=== PATIENT | female | born 1955 | race Caucasian/White ===

== ENCOUNTER → 2018-08-02 09:48 | Outpatient (CLI) | payer OTHER, MEDICAID, SELFPAY ==
--- NOTE | 2018-08-02 | DI.MG.S_ITS ---
BILATERAL DIGITAL SCREENING MAMMOGRAM 3D/2D WITH CAD: 08/02/2018 CLINICAL: Routine screening. Comparison is made to exams dated: 08/03/2017 mammogram, 02/14/2016 mammogram, and 03/08/2013 mammogram - [facility]. There are scattered fibroglandular elements in both breasts. Current study was also evaluated with a Computer Aided Detection (CAD) system. No significant masses, calcifications, or other findings are seen in either breast. There has been no significant interval change. IMPRESSION: NEGATIVE There is no mammographic evidence of malignancy. A 1 year screening mammogram is recommended. This exam was interpreted at Station ID: [id number]. NOTE: For mammograms, a report in lay terms will be sent to the patient. Approximately 15% of breast malignancies will not be visualized mammographically. In the management of a palpable breast mass, a negative mammogram must not discourage biopsy of a clinically suspicious lesion. Electronically Signed By: Vishnu Neely M.D. at/nay:08/02/2018 13:34:57 letter sent: Normal Exam ACR BI-RADS Category 1: Negative [id number]
== END ==
PROVIDERS: Family Provider Family Medicine; PCP Student in an Organized Health Care Education/Training Program; Visit Provider Student in an Organized Health Care Education/Training Program
DX: Z12.31 Encounter for screening mammogram for malignant neoplasm of breast (principal)
CPT/HCPCS: 77063; 77067

== ENCOUNTER → 2018-08-20 11:22 | Outpatient (CLI) | payer OTHER, MEDICAID, SELFPAY ==
[2018-08-20 12:15] LABS: Add Manual Diff / Slide Review NO; Basophils Absolute Auto 100 /uL (0-100); Basophils Percent Auto 0.8 % (0-2); Eosinophils Absolute Auto 100 /uL (0-450); Eosinophils Percent Auto 1.1 % (2-4); Hematocrit 46.5 % (36-46); Hemoglobin 15.9 g/dL (12.0-16.0); Lymphocytes Absolute Auto 2500 /uL (1100-4500); Lymphocytes Percent Auto 38.4 % (25-40); Mean Corpuscular HGB Conc 34.1 % (30-36); Mean Corpuscular Hemoglobin 30.6 PG (26-34); Mean Corpuscular Volume 89.9 fL (80-100); Monocytes Absolute Auto 500 /uL (0-900); Monocytes Percent Auto 7.4 % (3-14); Neutrophils Absolute Auto 3500 /uL (1500-7000); Neutrophils Percent Auto 52.3 % (50-75); Platelet Count 259 X10^3/uL (150-400); Red Blood Cell Count 5.18 X10^6/uL (4.0-5.2); White Blood Cell Count 6.6 X10^3/uL (4.5-11.0)
[2018-08-20 12:42] LABS: Blood Urea Nitrogen 15 mg/dL (7-17); Calcium 9.9 mg/dL (8.4-10.2); Carbon Dioxide 26 mmol/L (22-32); Chloride 104 mmol/L (98-107); Cholesterol 280 mg/dL (140-199); Estimated Glomerular Filt Rate > 60.0 mL/min (>60); Glucose 118 mg/dL (80-110); HDL Cholesterol 47 mg/dL (40-60); HEMOLYSIS 24 (0-50); LDL Cholesterol Calculated 175 mg/dL (<100); Sodium 140 mmol/L (137-145); Triglycerides 291 mg/dL (35-150)
[2018-08-20 12:51] LABS: Potassium 5.6 mmol/L (3.4-5.1)
[2018-08-20 16:49] LABS: Vitamin D 25 Hydroxy (D3) 26.7 ng/mL (30.0-100.0)
== END ==
PROVIDERS: Family Provider Family Medicine; PCP Student in an Organized Health Care Education/Training Program; Visit Provider Student in an Organized Health Care Education/Training Program
DX: R21 Rash and other nonspecific skin eruption (principal); F41.9 Anxiety disorder, unspecified; Z79.899 Other long term (current) drug therapy; Z13.220 Encounter for screening for lipoid disorders; E55.9 Vitamin D deficiency, unspecified
CPT/HCPCS: 36415; 80048; 80061; 82306; 85025

== ENCOUNTER 2019-04-19 10:30 | Outpatient (RCR) | payer OTHER, MEDICAID, SELFPAY ==
--- NOTE | 2019-02-01 10:53 | PT.OIE ---
Current Diagnoses Other specified disorders of muscle (01/27/19) Pelvic and perineal pain (01/27/19) Past Surgical History (Last Reviewed 01/18/19 @ 13:06 by Ivis Ren MD) History of cataract removal with insertion of prosthetic lens History of hip replacement (09/05/15) Status post arthroscopy Status post arthroscopy Status post hysterectomy Provider Visit Care Team Role Provider Type Mat Boyce MD Primary Care Provider Physician Specialty: Internal Medicine Address: [address] [place] [address], [id number] Email: Chanelle Chaparro MD Attending Provider Physician Specialty: TRANSIT MIX OPERATOR Address: [address] [place] [address], [id number] Email: [email or web address] Physical Therapy Initial Evaluation PT-OP-A Visit Information Start: 02/01/19 09:56 Freq: Status: Active Protocol: Document 01/27/19 09:57 [facility] (Rec: 02/01/19 10:53 [facility] [id number]) Out-Patient Physical Therapy Visit Information Visit Information Visit Type Initial Evaluation Visit Note 63 year old female who reports pelvic pain in the right side pubic bone region and internally in the pelvic floor on the right. Pt reports her symptoms began following her hysterectomy and TVT sling procedure in 2001 Visit Start Time 09:00 Visit Stop Time 09:45 Total Visit Minutes 45 Visit Number 1 Evaluation Information Evaluation Date 01/27/19 PT-OP-B Current Condition Start: 02/01/19 09:56 Freq: Status: Active Protocol: Document 01/27/19 09:57 [facility] (Rec: 02/01/19 10:53 [facility] [id number]) Current Condition History of Current Condition Onset Date 2001 Current Complaints pelvic pain, difficulty voiding, dyspareunia History of Current Condition Mera reports her symptoms began in 2001 following her hysterectomy and urethral sling surgery. She reports feeling as if the right side near the pubic bone is impinged She reports being unable to have intercourse at this time as it feels like a knife is in my right side. She c/o pain at the pubic bone and the referred pain to the inner thigh. Sleep is difficulty as she has pain at night. She also reports having a strong sense of urgency during the day to void . With toileting she reports she has to lean forward and move her body to the exact right position in order to start her urine stream. She does report urinary leakage and leakage varies depending on activity but it is often with changing positions. Other past medical history includes a right hip replacement in September of 2015 this was a anterior approach and was redone in 2017 due to complications. She also had her left knee replaced in 2016 . She underwent spinal surgery for L3-4 stenosis in June. She is currently taking hydrocodone for pain and alprazolam for sleep Treatment Goals Patient/Caregiver Goals Goal include reducing pelvic pain and tightness for improved function and to be able to engage in intercourse with her Current Functional Impairments (Reported) Functional Limitations- ADL's limited in sitting for long durations, sleep is disturbed due to pain Functional Limitations- Other unable to engage in intercourse with her due to pain PT-OP-C Subjective Start: 02/01/19 09:56 Freq: Status: Active Protocol: Document 01/27/19 09:57 [facility] (Rec: 02/01/19 10:53 [facility] [id number]) Patient Questionnaires Pelvic Pain and Urgency/Frequency Patient Symptom Scale Pelvic Pain Score 26 OP-PT Pain Assessment Pain Assessment Grid Paper Pain Assessment Grid Completed Yes Location right pubic region, inner thigh, internal pelvic floor Pain Location Details pain rated 6/10 with referral into the inner thigh on the right Intensity 6 Scale Used Numeric (1 - 10) Description Acute Sharp Shooting Spasm Tightness Frequency Daily Pain Duration pain is daily and can intensify with activities such as intercourse Radiating Location right medial thigh Pain Aggravating Factors Sitting Home Pain Medication Use Pain Medications Used Yes Home Pain Medication Frequency hydrocodone used as needed for pain PT-OP-F Manual Assessment Start: 02/01/19 09:56 Freq: Status: Active Protocol: Document 01/27/19 09:57 [facility] (Rec: 02/01/19 10:53 [facility] [id number]) Manual Assessments Soft Tissue Assessment Soft Tissue Mobility Assessment with assessment over the fascia there is restrictions over the mons pubic, right adductors, left obturator internus and coccygeus, right side of urethra Tightness of the right greater than left iliopsoas is observed with + dale test Joint Mobility Assessment Joint Mobility Assessment Due to right hip replacement there are limitations in right hip mobility of abduction and hip extension limited lumbar ROM into flexion in the lower lumbar spine Other Manual Assessments Other Manual Assessments + dale test right PT-OP-I Pelvic Floor Start: 02/01/19 09:56 Freq: Status: Active Protocol: Document 01/27/19 09:57 [facility] (Rec: 02/01/19 10:53 [facility] [id number]) Pelvic Floor Assessment Urine Pelvic Floor Surgery Yes Urinary Symptoms Urge Sensation Other Urinary Symptoms difficulty initiating the urinary stream Leakage Size Small Other Leakage Causes triggers can vary but change of position from sit to stand can be a trigger Leaks Per Day varies Voiding Frequency 6-8 times per day Nocturia 3+ Pelvic Clock Pelvic Clock 12-3 Atrophy Pelvic Clock 3-6 Tightness Pelvic Clock 6-9 Atrophy Pelvic Clock 9-12 Guarding Tightness Pelvic Clock Other atrophy noted in the pelvic floor muscles, possible scar tissue restrictions on the right side of the urethra, guarding left obturator internus and coccygeus Contraction Ability Voluntary Contraction Weak Voluntary Relaxation Weak Manual Muscle Testing Left 2 Manual Muscle Testing Right 2 Manual Muscle Testing Anterior 2 Manual Muscle Testing Posterior 2 Muscle Endurance (Seconds) 5 Comments Pelvic Floor Comments able to facilitate the pelvic floor in all parts of the levator ani but weak in all parts as well, difficulty sustaining a pelvic floor contraction PT-OP-J Posture/Palpation/Skin Start: 02/01/19 09:56 Freq: Status: Active Protocol: Document 01/27/19 09:57 [facility] (Rec: 02/01/19 10:53 [facility] [id number]) Palpation Assessment Location Three Palpation Location left obturator internus/ coccygeus Palpation Findings Soft Tissue Tightness Two Palpation Location right adductors Palpation Findings Soft Tissue Tightness Muscle Guarding Tenderness One Palpation Location right pubic bone Palpation Findings Soft Tissue Tightness Tenderness Palpation Details right mons pubis region tightness, scar tissue tightness noted right side of the urethra internally PT-OP-Q Treatments Start: 02/01/19 09:56 Freq: Status: Active Protocol: Document 01/27/19 09:57 [facility] (Rec: 02/01/19 10:53 [facility] [id number]) Manual Therapy Treatment Soft Tissue Mobilization 3 Body Location right side of urethera Mobilization Type Sustained Pressure Trigger Point Release Intensity/Depth Superficial Body Position Hooklying Comments good tolerance, no increase in pain 2 Body Location right adductors and attachment to the pubic bone Mobilization Type Myofascial Release Intensity/Depth Moderate Body Position Hooklying Comments good tolerance for treatment 1 Body Location right mons pubis Mobilization Type Myofascial Release Rolling Intensity/Depth Superficial Body Position Hooklying Comments good tolerance for treatment PT-OP-T Assessment and Plan Start: 02/01/19 09:56 Freq: Status: Active Protocol: Document 01/27/19 09:57 [facility] (Rec: 02/01/19 10:53 [facility] [id number]) Physical Therapy Assessment Rehab Potential Rehabilitation Potential Good Evaluation Complexity Number of Personal Factors/Comorbidities 0 Number of Body Systems Impaired 1-2 Clinical Presentation at Evaluation Stable Impairments Impairments Activity Tolerance Pain ROM Soft Tissue Mobility Strength Tone Goals Four Impairment myofascial restrictions right mons pubis and right side of urethra Fpc Goal (LTG) with manual therapy techniques improve myofasical mobility to decrease pain and Mera reports greater ease with voiding to not have to bend forward from the waist to void . LTG Duration 8 weeks Three Impairment Pelvic floor muscle weakness 2 /5 MMT Fpc Goal (LTG) Improve both endurance of the pelvic floor to 10 second hold time and strength of the pelvic floor by at least one muscle grade for improved support of the pelvis LTG Duration 8 weeks Two Impairment pelvic floor tightness left obturator internus, coccygeus, R adductors Short Term Goal (STG) Mera is educated in a HEP for pelvic floor stretching and right hip stretching STG Duration 4 weeks Fpc Goal (LTG) Decrease muscle guarding of the left oburatur internus and improve mobility of the right adductors to decrease pain both with sitting and with intercourse LTG Duration 8 weeks One Impairment R sided pelvic pain rated 6/10 Short Term Goal (STG) With PT treatments Mera's pain levels will slowly decrease to 3-4 or better/10 STG Duration 4 weeks [employer] Goal (LTG) Mera is able to resume intercourse with her without increased pain LTG Duration 8 weeks + Assessment Summary Assessment Mera presents to physcial therapy today with symptoms of chronic pelvic pain on the right side. She reports her symptoms began in 2001 following a hysterectomy and TVT sling placement. She reports c/o tightness on the right side of the pubic bone region both externally and internally. The pain at this point is rated 6/10 and she is unable to engage in intercourse with her as she describes feeling as if there is a knife going in to her right upper vaginal wall. She reports feeling as if pain begins at the pubic bone and is then referred into her right inner thigh. She feels a strong sense of urgency to void at times and this urgency will wake her up at night to void. She reports she has to bend forward from her waist and move her body in a certain position to initate the urinary stream. She is taking hydrocodone as needed for pain and alprazolam for sleep. She has a history of right hip replacement anterior approach in 2015 with revision due to complications 2016, left knee relacement 2016, and lumbar surgery for L3-4 stenosis last June. With examination today I wasn' t able to fully recreate the pain she describes. I did find myofascial restrictions across the mons pubis region right side, right adductors, left obturator internus and coccygeus, and some scar tissue tightness right side of urethra. She is limited in full hip extension and abduction on the right hip most likely due inpart to her hip replacement. She is tight in the iliopsoas and adductors on the right and her paraspinals are also tight in the lumbar spine. Pelvic floor is weak with 2/5 MMT. There is limited endurance of < 5 second hold time. No pelvic organ prolapse is felt today. Mera responded well to MFR today over the mons pubis, right adductor, left obturator internus, and scar tissue release on the right side of urethra, no increase in pain was reported. She was given a stretch for her pelvic floor to address the tightness issues. Treatment will include manual treatments for improved tissue mobility, stretches for home to address tightness in the hip and tissues, pelvic floor relaxed awareness and then eventually strengthening as she is able to. She is a good candidate for PT Physical Therapy Plan Frequency and Duration Frequency of Treatment 1x/Week Duration of Treatment 8 Plan of Care Start Date 01/27/19 Plan of Care End Date 03/24/19 Therapeutic Interventions Therapeutic Interventions Home Exercise Program Manual Therapy Patient/Caregiver Education Self-Care/Home Management Soft Tissue Mobilization Therapeutic Exercises Modalities Biofeedback Electric Stimulation Next Visit Focus/Plan Next Note Type Treatment Note Next Visit Plan Reassess myofascial restrictions next visit and progress as tolerated with MFR , stretching, relaxed awareness of the pelvic floor.
--- NOTE | 2019-02-01 10:54 | PT.OPPOC ---
Current Diagnoses Other specified disorders of muscle (01/27/19) Pelvic and perineal pain (01/27/19) Provider Visit Care Team Role Provider Type Mat Boyce MD Primary Care Provider Physician Specialty: Internal Medicine Address: [address] [place] [address], [id number] Email: Chanelle Chaparro MD Attending Provider Physician Specialty: TRACTOR OPERATOR LASER LEVELING Address: [address] [place] [address], [id number] Email: [email or web address] Plan Of Care PT-OP-T Assessment and Plan Start: 02/01/19 09:56 Freq: Status: Active Protocol: Document 01/27/19 09:57 [facility] (Rec: 02/01/19 10:53 [facility] [id number]) Physical Therapy Assessment Rehab Potential Rehabilitation Potential Good Evaluation Complexity Number of Personal Factors/Comorbidities 0 Number of Body Systems Impaired 1-2 Clinical Presentation at Evaluation Stable Impairments Impairments Activity Tolerance Pain ROM Soft Tissue Mobility Strength Tone Goals Four Impairment myofascial restrictions right mons pubis and right side of urethra [employer] Goal (LTG) with manual therapy techniques improve myofasical mobility to decrease pain and Mera reports greater ease with voiding to not have to bend forward from the waist to void . LTG Duration 8 weeks Three Impairment Pelvic floor muscle weakness 2 /5 MMT Senior Care Goal (LTG) Improve both endurance of the pelvic floor to 10 second hold time and strength of the pelvic floor by at least one muscle grade for improved support of the pelvis LTG Duration 8 weeks Two Impairment pelvic floor tightness left obturator internus, coccygeus, R adductors Short Term Goal (STG) Mera is educated in a HEP for pelvic floor stretching and right hip stretching STG Duration [address] Goal (LTG) Decrease muscle guarding of the left oburatur internus and improve mobility of the right adductors to decrease pain both with sitting and with intercourse LTG Duration 8 weeks One Impairment R sided pelvic pain rated 6/10 Short Term Goal (STG) With PT treatments Mera's pain levels will slowly decrease to 3-4 or better/10 STG Duration [address] Goal (LTG) Mera is able to resume intercourse with her without increased pain LTG Duration 8 weeks + Assessment Summary Assessment Mera presents to physcial therapy today with symptoms of chronic pelvic pain on the right side. She reports her symptoms began in 2001 following a hysterectomy and TVT sling placement. She reports c/o tightness on the right side of the pubic bone region both externally and internally. The pain at this point is rated 6/10 and she is unable to engage in intercourse with her as she describes feeling as if there is a knife going in to her right upper vaginal wall. She reports feeling as if pain begins at the pubic bone and is then referred into her right inner thigh. She feels a strong sense of urgency to void at times and this urgency will wake her up at night to void. She reports she has to bend forward from her waist and move her body in a certain position to initiate the urinary stream. She is taking hydrocodone as needed for pain and alprazolam for sleep. She has a history of right hip replacement anterior approach in 2015 with revision due to complications 2016, left knee replacement 2016, and lumbar surgery for L3-4 stenosis last June. With examination today I wasn't able to fully recreate the pain she describes. I did find myofascial restrictions across the mons pubis region right side, right adductors, left obturator internus and coccygeus, and some scar tissue tightness right side of urethra. She is limited in full hip extension and abduction on the right hip most likely due inpart to her hip replacement. She is tight in the iliopsoas and adductors on the right and her paraspinals are also tight in the lumbar spine. Pelvic floor is weak with 2/5 MMT. There is limited endurance of < 5 second hold time. No pelvic organ prolapse is felt today. Mera responded well to MFR today over the mons pubis, right adductor, left obturator internus, and scar tissue release on the right side of urethra, no increase in pain was reported. She was given a stretch for her pelvic floor to address the tightness issues. Treatment will include manual treatments for improved tissue mobility, stretches for home to address tightness in the hip and tissues, pelvic floor relaxed awareness and then eventually strengthening as she is able to. She is a good candidate for PT Physical Therapy Plan Frequency and Duration Frequency of Treatment 1x/Week Duration of Treatment 8 Plan of Care Start Date 01/27/19 Plan of Care End Date 03/24/19 Therapeutic Interventions Therapeutic Interventions Home Exercise Program Manual Therapy Patient/Caregiver Education Self-Care/Home Management Soft Tissue Mobilization Therapeutic Exercises Modalities Biofeedback Electric Stimulation Next Visit Focus/Plan Next Note Type Treatment Note Next Visit Plan Reassess myofascial restrictions next visit and progress as tolerated with MFR , stretching, relaxed awareness of the pelvic floor. Plan of Care Dates Plan of Care Start Date 01/27/19 Plan of Care End Date 03/24/19 Please Sign and Return: I have reviewed this Plan of Care and certify that the skilled therapy services above are required to meet the patient?s needs. Physician Signature Date Printed Name and Credentials Clinical Instructor Signature Printed Name and Credentials
--- NOTE | 2019-02-22 14:25 | PT.OTN ---
Current Diagnoses Other specified disorders of muscle (02/22/19) Pelvic and perineal pain (02/22/19) Physical Therapy Treatment Note PT-OP-A Visit Information Start: 02/01/19 09:56 Freq: Status: Active Protocol: Document 02/22/19 14:20 [facility] (Rec: 02/22/19 14:24 [facility] [email or web address]) Out-Patient Physical Therapy Visit Information Visit Information Visit Type Treatment Note Visit Start Time 09:00 Visit Stop Time 09:45 Total Visit Minutes 45 Visit Number 2 PT-OP-B Current Condition Start: 02/01/19 09:56 Freq: Status: Active Protocol: Document 01/27/19 09:57 [facility] (Rec: 02/01/19 10:53 [facility] [id number]) Current Condition History of Current Condition Onset Date 2001 Current Complaints pelvic pain, difficulty voiding, dyspareunia History of Current Condition Mera reports her symptoms began in 2001 following her hysterectomy and urethral sling surgery. She reports feeling as if the right side near the pubic bone is impinged She reports being unable to have intercourse at this time as it feels like a knife is in my right side. She c/o pain at the pubic bone and the referred pain to the inner thigh. Sleep is difficulty as she has pain at night. She also reports having a strong sense of urgency during the day to void . With toileting she reports she has to lean forward and move her body to the exact right position in order to start her urine stream. She does report urinary leakage and leakage varies depending on activity but it is often with changing positions. Other past medical history includes a right hip replacement in September of 2015 this was a anterior approach and was redone in 2017 due to complications. She also had her left knee replaced in 2016 . She underwent spinal surgery for L3-4 stenosis in June. She is currently taking hydrocodone for pain and alprazolam for sleep Treatment Goals Patient/Caregiver Goals Goal include reducing pelvic pain and tightness for improved function and to be able to engage in intercourse with her Current Functional Impairments (Reported) Functional Limitations- ADL's limited in sitting for long durations, sleep is disturbed due to pain Functional Limitations- Other unable to engage in intercourse with her due to pain PT-OP-C Subjective Start: 02/01/19 09:56 Freq: Status: Active Protocol: Document 02/22/19 14:20 [facility] (Rec: 02/22/19 14:24 [facility] [email or web address]) OP-PT Subjective Patient Comments Patient Comments Mera reports she tolerated last visit very well . She states when she gets flared up she can feel pain into her right foot. 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 PT-OP-F Manual Assessment Start: 02/01/19 09:56 Freq: Status: Active Protocol: Document 01/27/19 09:57 [facility] (Rec: 02/01/19 10:53 [facility] [id number]) Manual Assessments Soft Tissue Assessment Soft Tissue Mobility Assessment with assessment over the fascia there is restrictions over the mons pubic, right adductors, left obturator internus and coccygeus, right side of urethra Tightness of the right greater than left iliopsoas is observed with + dale test Joint Mobility Assessment Joint Mobility Assessment Due to right hip replacement there are limitations in right hip mobility of abduction and hip extension limited lumbar ROM into flexion in the lower lumbar spine Other Manual Assessments Other Manual Assessments + dale test right PT-OP-I Pelvic Floor Start: 02/01/19 09:56 Freq: Status: Active Protocol: Document 01/27/19 09:57 [facility] (Rec: 02/01/19 10:53 [facility] [id number]) Pelvic Floor Assessment Urine Pelvic Floor Surgery Yes Urinary Symptoms Urge Sensation Other Urinary Symptoms difficutly initiating the urinary stream Leakage Size Small Other Leakage Causes triggers can vary but change of position from sit to stand can be a trigger Leaks Per Day varies Voiding Frequency 6-8 times per day Nocturia 3+ Pelvic Clock Pelvic Clock 12-3 Atrophy Pelvic Clock 3-6 Tightness Pelvic Clock 6-9 Atrophy Pelvic Clock 9-12 Guarding Tightness Pelvic Clock Other atrophy noted in the pelvic floor muscles, possible scar tissue restrictions on the right side of the urethra, guarding left obturator internus and coccygeus Contraction Ability Voluntary Contraction Weak Voluntary Relaxation Weak Manual Muscle Testing Left 2 Manual Muscle Testing Right 2 Manual Muscle Testing Anterior 2 Manual Muscle Testing Posterior 2 Muscle Endurance (Seconds) 5 Comments Pelvic Floor Comments able to facilitate the pelvic floor in all parts of the levator ani but weak in all parts as well, difficulty sustaining a pelvic floor contraction PT-OP-J Posture/Palpation/Skin Start: 02/01/19 09:56 Freq: Status: Active Protocol: Document 01/27/19 09:57 [facility] (Rec: 02/01/19 10:53 [facility] [id number]) Palpation Assessment Location Three Palpation Location left obturator internus/ coccygeus Palpation Findings Soft Tissue Tightness Two Palpation Location right adductors Palpation Findings Soft Tissue Tightness Muscle Guarding Tenderness One Palpation Location right pubic bone Palpation Findings Soft Tissue Tightness Tenderness Palpation Details right mons pubis region tightness, scar tissue tightness noted right side of the urethra internally PT-OP-Q Treatments Start: 02/01/19 09:56 Freq: Status: Active Protocol: Document 02/22/19 14:20 [facility] (Rec: 02/22/19 14:24 [facility] [id number]) Manual Therapy Treatment Soft Tissue Mobilization 4 Body Location left illiococcygeus release Comments internally with manual stretch 3 Body Location right side of urethera Mobilization Type Sustained Pressure Trigger Point Release Intensity/Depth Superficial Body Position Hooklying Comments good tolerance, no increase in pain 2 Body Location right adductors and attachment to the pubic bone Mobilization Type Myofascial Release Intensity/Depth Moderate Body Position Hooklying Comments good tolerance for treatment 1 Body Location right mons pubis Mobilization Type Myofascial Release Rolling Intensity/Depth Superficial Body Position Hooklying Comments good tolerance for treatment PT-OP-T Assessment and Plan Start: 02/01/19 09:56 Freq: Status: Active Protocol: Document 02/22/19 14:20 [facility] (Rec: 02/22/19 14:24 [facility] [email or web address]) Physical Therapy Assessment Assessment Summary Assessment Good tolerance for treatment today. I did begin to release the left lateral wall of the pelvic floor as well and have Mera home booty sit recommendations to stretch the lateral bingham. I also gave her cobra pose to begin stretching the tissue over the bladder. Physical Therapy Plan Frequency and Duration Frequency of Treatment 1x/Week Duration of Treatment 8 Plan of Care Start Date 01/27/19 Plan of Care End Date 03/24/19 Therapeutic Interventions Therapeutic Interventions Home Exercise Program Manual Therapy Patient/Caregiver Education Self-Care/Home Management Soft Tissue Mobilization Therapeutic Exercises Modalities Biofeedback Electric Stimulation Next Visit Focus/Plan Next Note Type Treatment Note Next Visit Plan begin with pelvic floor stretches and then reassess tightness of the tissue, review bootie sit, work on scar over the right hip
--- NOTE | 2019-03-08 12:20 | PT.OTN ---
Current Diagnoses Other specified disorders of muscle (03/08/19) Pelvic and perineal pain (03/08/19) Physical Therapy Treatment Note PT-OP-A Visit Information Start: 02/01/19 09:56 Freq: Status: Active Protocol: Document 03/01/19 15:03 [facility] (Rec: 03/08/19 09:06 [facility] [email or web address]) Out-Patient Physical Therapy Visit Information Visit Information Visit Type Treatment Note Visit Start Time 09:00 Visit Stop Time 09:45 Total Visit Minutes 45 Visit Number 3 PT-OP-B Current Condition Start: 02/01/19 09:56 Freq: Status: Active Protocol: Document 01/27/19 09:57 [facility] (Rec: 02/01/19 10:53 [facility] [id number]) Current Condition History of Current Condition Onset Date 2001 Current Complaints pelvic pain, difficulty voiding, dyspareunia History of Current Condition Mera reports her symptoms began in 2001 following her hysterectomy and urethral sling surgery. She reports feeling as if the right side near the pubic bone is impinged She reports being unable to have intercourse at this time as it feels like a knife is in my right side. She c/o pain at the pubic bone and the referred pain to the inner thigh. Sleep is difficulty as she has pain at night. She also reports having a strong sense of urgency during the day to void . With toileting she reports she has to lean forward and move her body to the exact right position in order to start her urine stream. She does report urinary leakage and leakage varies depending on activity but it is often with changing positions. Other past medical history includes a right hip replacement in September of 2015 this was a anterior approach and was redone in 2017 due to complications. She also had her left knee replaced in 2016 . She underwent spinal surgery for L3-4 stenosis in June. She is currently taking hydrocodone for pain and alprazolam for sleep Treatment Goals Patient/Caregiver Goals Goal include reducing pelvic pain and tightness for improved function and to be able to engage in intercourse with her Current Functional Impairments (Reported) Functional Limitations- ADL's limited in sitting for long durations, sleep is disturbed due to pain Functional Limitations- Other unable to engage in intercourse with her due to pain PT-OP-C Subjective Start: 02/01/19 09:56 Freq: Status: Active Protocol: Document 03/01/19 15:03 [facility] (Rec: 03/08/19 09:06 [facility] [id number]) OP-PT Subjective Patient Comments Patient Comments Was sore following last visit but could tell treatment is helping. Requests to work some on her right hip today due to scar tissue PT-OP-F Manual Assessment Start: 02/01/19 09:56 Freq: Status: Active Protocol: Document 01/27/19 09:57 [facility] (Rec: 02/01/19 10:53 [facility] [id number]) Manual Assessments Soft Tissue Assessment Soft Tissue Mobility Assessment with assessment over the fascia there is restrictions over the mons pubic, right adductors, left obturator internus and coccygeus, right side of urethra Tightness of the right greater than left iliopsoas is observed with + dale test Joint Mobility Assessment Joint Mobility Assessment Due to right hip replacement there are limitations in right hip mobility of abduction and hip extension limited lumbar ROM into flexion in the lower lumbar spine Other Manual Assessments Other Manual Assessments + dale test right PT-OP-I Pelvic Floor Start: 02/01/19 09:56 Freq: Status: Active Protocol: Document 01/27/19 09:57 [facility] (Rec: 02/01/19 10:53 [facility] [id number]) Pelvic Floor Assessment Urine Pelvic Floor Surgery Yes Urinary Symptoms Urge Sensation Other Urinary Symptoms difficutly initiating the urinary stream Leakage Size Small Other Leakage Causes triggers can vary but change of position from sit to stand can be a trigger Leaks Per Day varies Voiding Frequency 6-8 times per day Nocturia 3+ Pelvic Clock Pelvic Clock 12-3 Atrophy Pelvic Clock 3-6 Tightness Pelvic Clock 6-9 Atrophy Pelvic Clock 9-12 Guarding,Tightness Pelvic Clock Other atrophy noted in the pelvic floor muscles, possible scar tissue restrictions on the right side of the urethra, guarding left obturator internus and coccygeus Contraction Ability Voluntary Contraction Weak Voluntary Relaxation Weak Manual Muscle Testing Left 2 Manual Muscle Testing Right 2 Manual Muscle Testing Anterior 2 Manual Muscle Testing Posterior 2 Muscle Endurance (Seconds) 5 Comments Pelvic Floor Comments able to facilitate the pelvic floor in all parts of the levator ani but weak in all parts as well, difficulty sustaining a pelvic floor contraction PT-OP-J Posture/Palpation/Skin Start: 02/01/19 09:56 Freq: Status: Active Protocol: Document 01/27/19 09:57 [facility] (Rec: 02/01/19 10:53 [facility] [id number]) Palpation Assessment Location Three Palpation Location left obturator internus/ coccygeus Palpation Findings Soft Tissue Tightness Two Palpation Location right adductors Palpation Findings Soft Tissue Tightness,Muscle Guarding,Tenderness One Palpation Location right pubic bone Palpation Findings Soft Tissue Tightness, Tenderness Palpation Details right mons pubis region tightness, scar tissue tightness noted right side of the urethra internally PT-OP-Q Treatments Start: 02/01/19 09:56 Freq: Status: Active Protocol: Document 03/01/19 15:03 [facility] (Rec: 03/08/19 09:06 [facility] [id number]) Therapeutic Exercises Supine Exercises 3 Supine Exercise Name cobra stretch 2 Supine Exercise Name single knee to chest 1 Supine Exercise Name adductor stretch Manual Therapy Treatment Soft Tissue Mobilization 5 Body Location fascial release over the hip scar on the right 4 Body Location left illiococcygeus release Comments internally with manual stretch 3 Body Location right side of urethera Mobilization Type Sustained Pressure,Trigger Point Release Intensity/Depth Superficial Body Position Hooklying Comments good tolerance, no increase in pain 2 Body Location right adductors and attachment to the pubic bone Mobilization Type Myofascial Release Intensity/Depth Moderate Body Position Hooklying Comments good tolerance for treatment 1 Body Location right mons pubis Mobilization Type Myofascial Release,Rolling Intensity/Depth Superficial Body Position Hooklying Comments good tolerance for treatment PT-OP-T Assessment and Plan Start: 02/01/19 09:56 Freq: Status: Active Protocol: Document 03/01/19 10:18 [facility] (Rec: 03/08/19 12:20 [facility] [id number]) Physical Therapy Assessment Assessment Summary Assessment Good tolerance for MFR and Mera felt the work over her right hip helped to loosen things up for her. She does get quite a bit of sensation changes in her right foot with MFR work Physical Therapy Plan Frequency and Duration Frequency of Treatment 1x/Week Duration of Treatment 8 Plan of Care Start Date 01/27/19 Plan of Care End Date 03/24/19 Next Visit Focus/Plan Next Note Type Treatment Note Next Visit Plan begin with pelvic floor stretches and then reassess tightness of the tissue, review bootie sit, work on scar over the right hip
--- NOTE | 2019-03-08 13:09 | PT.OTN ---
Current Diagnoses Other specified disorders of muscle (03/08/19) Pelvic and perineal pain (03/08/19) Physical Therapy Treatment Note PT-OP-A Visit Information Start: 02/01/19 09:56 Freq: Status: Active Protocol: Document 03/08/19 13:02 [facility] (Rec: 03/08/19 13:09 [facility] [id number]) Out-Patient Physical Therapy Visit Information Visit Information Visit Type Treatment Note Visit Start Time 09:10 Visit Stop Time 09:45 Total Visit Minutes 35 Visit Number 4 Number of STRATEGY INTERN Visits 0 PT-OP-B Current Condition Start: 02/01/19 09:56 Freq: Status: Active Protocol: Document 01/27/19 09:57 [facility] (Rec: 02/01/19 10:53 [facility] [id number]) Current Condition History of Current Condition Onset Date 2001 Current Complaints pelvic pain, difficulty voiding, dyspareunia History of Current Condition Mera reports her symptoms began in 2001 following her hysterectomy and urethral sling surgery. She reports feeling as if the right side near the pubic bone is impinged She reports being unable to have intercourse at this time as it feels like a knife is in my right side. She c/o pain at the pubic bone and the referred pain to the inner thigh. Sleep is difficulty as she has pain at night. She also reports having a strong sense of urgency during the day to void . With toileting she reports she has to lean forward and move her body to the exact right position in order to start her urine stream. She does report urinary leakage and leakage varies depending on activity but it is often with changing positions. Other past medical history includes a right hip replacement in September of 2015 this was a anterior approach and was redone in 2017 due to complications. She also had her left knee replaced in 2016 . She underwent spinal surgery for L3-4 stenosis in June. She is currently taking hydrocodone for pain and alprazolam for sleep Treatment Goals Patient/Caregiver Goals Goal include reducing pelvic pain and tightness for improved function and to be able to engage in intercourse with her Current Functional Impairments (Reported) Functional Limitations- ADL's limited in sitting for long durations, sleep is disturbed due to pain Functional Limitations- Other unable to engage in intercourse with her due to pain PT-OP-C Subjective Start: 02/01/19 09:56 Freq: Status: Active Protocol: Document 03/08/19 13:02 [facility] (Rec: 03/08/19 13:09 [facility] [id number]) OP-PT Subjective Patient Comments Patient Comments pt 10 minutes late as she had road construction in front of her house and couldn't get out . She is feeling like the MFR is helping. Thursday was a bad day with pain in the pubic area she notes that if she lays on her right side wshe will often wake up with pain PT-OP-F Manual Assessment Start: 02/01/19 09:56 Freq: Status: Active Protocol: Document 01/27/19 09:57 [facility] (Rec: 02/01/19 10:53 [facility] [id number]) Manual Assessments Soft Tissue Assessment Soft Tissue Mobility Assessment with assessment over the fascia there is restrictions over the mons pubic, right adductors, left obturator internus and coccygeus, right side of urethra Tightness of the right greater than left iliopsoas is observed with + dale test Joint Mobility Assessment Joint Mobility Assessment Due to right hip replacement there are limitations in right hip mobility of abduction and hip extension limited lumbar ROM into flexion in the lower lumbar spine Other Manual Assessments Other Manual Assessments + dale test right PT-OP-I Pelvic Floor Start: 02/01/19 09:56 Freq: Status: Active Protocol: Document 01/27/19 09:57 [facility] (Rec: 02/01/19 10:53 [facility] [id number]) Pelvic Floor Assessment Urine Pelvic Floor Surgery Yes Urinary Symptoms Urge Sensation Other Urinary Symptoms difficutly initiating the urinary stream Leakage Size Small Other Leakage Causes triggers can vary but change of position from sit to stand can be a trigger Leaks Per Day varies Voiding Frequency 6-8 times per day Nocturia 3+ Pelvic Clock Pelvic Clock 12-3 Atrophy Pelvic Clock 3-6 Tightness Pelvic Clock 6-9 Atrophy Pelvic Clock 9-12 Guarding,Tightness Pelvic Clock Other atrophy noted in the pelvic floor muscles, possible scar tissue restrictions on the right side of the urethra, guarding left obturator internus and coccygeus Contraction Ability Voluntary Contraction Weak Voluntary Relaxation Weak Manual Muscle Testing Left 2 Manual Muscle Testing Right 2 Manual Muscle Testing Anterior 2 Manual Muscle Testing Posterior 2 Muscle Endurance (Seconds) 5 Comments Pelvic Floor Comments able to facilitate the pelvic floor in all parts of the levator ani but weak in all parts as well, difficulty sustaining a pelvic floor contraction PT-OP-J Posture/Palpation/Skin Start: 02/01/19 09:56 Freq: Status: Active Protocol: Document 01/27/19 09:57 [facility] (Rec: 02/01/19 10:53 [facility] [id number]) Palpation Assessment Location Three Palpation Location left obturator internus/ coccygeus Palpation Findings Soft Tissue Tightness Two Palpation Location right adductors Palpation Findings Soft Tissue Tightness,Muscle Guarding,Tenderness One Palpation Location right pubic bone Palpation Findings Soft Tissue Tightness, Tenderness Palpation Details right mons pubis region tightness, scar tissue tightness noted right side of the urethra internally PT-OP-Q Treatments Start: 02/01/19 09:56 Freq: Status: Active Protocol: Document 03/01/19 15:03 [facility] (Rec: 03/08/19 09:06 [facility] [email or web address]) Therapeutic Exercises Supine Exercises 3 Supine Exercise Name cobra stretch 2 Supine Exercise Name single knee to chest 1 Supine Exercise Name adductor stretch Manual Therapy Treatment Soft Tissue Mobilization 5 Body Location fascial release over the hip scar on the right 4 Body Location left illiococcygeus release Comments internally with manual stretch 3 Body Location right side of urethera Mobilization Type Sustained Pressure,Trigger Point Release Intensity/Depth Superficial Body Position Hooklying Comments good tolerance, no increase in pain 2 Body Location right adductors and attachment to the pubic bone Mobilization Type Myofascial Release Intensity/Depth Moderate Body Position Hooklying Comments good tolerance for treatment 1 Body Location right mons pubis Mobilization Type Myofascial Release,Rolling Intensity/Depth Superficial Body Position Hooklying Comments good tolerance for treatment PT-OP-T Assessment and Plan Start: 02/01/19 09:56 Freq: Status: Active Protocol: Document 03/08/19 13:02 [facility] (Rec: 03/08/19 13:09 [facility] [id number]) Physical Therapy Assessment Assessment Summary Assessment Good tolerance for MFR and I was able to do more skin rolling today on the tissue. I wasd also able to go deeper with the scar tissue release Physical Therapy Plan Frequency and Duration Frequency of Treatment 1x/Week Duration of Treatment 8 Plan of Care Start Date 01/27/19 Plan of Care End Date 03/24/19 Therapeutic Interventions Therapeutic Interventions Home Exercise Program,Manual Therapy,Patient/Caregiver Education,Self-Care/Home Management,Soft Tissue Mobilization,Therapeutic Exercises Modalities Biofeedback,Electric Stimulation Next Visit Focus/Plan Next Note Type Treatment Note Next Visit Plan review pelvic floor stretches next visit, review bootie sit and continue to work on mobilizing the right side fascia of the pelvis and hip
--- NOTE | 2019-03-15 17:35 | PT.OTN ---
Current Diagnoses Other specified disorders of muscle (03/14/19) Pelvic and perineal pain (03/14/19) Physical Therapy Treatment Note PT-OP-A Visit Information Start: 02/01/19 09:56 Freq: Status: Active Protocol: Document 03/14/19 11:30 [facility] (Rec: 03/15/19 17:35 [facility] [email or web address]) Out-Patient Physical Therapy Visit Information Visit Information Visit Type Treatment Note Visit Start Time 11:30 Visit Stop Time 12:15 Total Visit Minutes 45 Visit Number 5 Number of ENERGY CONSERVATION DIRECTOR Visits 0 PT-OP-B Current Condition Start: 02/01/19 09:56 Freq: Status: Active Protocol: Document 01/27/19 09:57 [facility] (Rec: 02/01/19 10:53 [facility] [id number]) Current Condition History of Current Condition Onset Date 2001 Current Complaints pelvic pain, difficulty voiding, dyspareunia History of Current Condition Mera reports her symptoms began in 2001 following her hysterectomy and urethral sling surgery. She reports feeling as if the right side near the pubic bone is impinged She reports being unable to have intercourse at this time as it feels like a knife is in my right side. She c/o pain at the pubic bone and the referred pain to the inner thigh. Sleep is difficulty as she has pain at night. She also reports having a strong sense of urgency during the day to void . With toileting she reports she has to lean forward and move her body to the exact right position in order to start her urine stream. She does report urinary leakage and leakage varies depending on activity but it is often with changing positions. Other past medical history includes a right hip replacement in September of 2015 this was a anterior approach and was redone in 2017 due to complications. She also had her left knee replaced in 2016 . She underwent spinal surgery for L3-4 stenosis in June. She is currently taking hydrocodone for pain and alprazolam for sleep Treatment Goals Patient/Caregiver Goals Goal include reducing pelvic pain and tightness for improved function and to be able to engage in intercourse with her Current Functional Impairments (Reported) Functional Limitations- ADL's limited in sitting for long durations, sleep is disturbed due to pain Functional Limitations- Other unable to engage in intercourse with her due to pain PT-OP-C Subjective Start: 02/01/19 09:56 Freq: Status: Active Protocol: Document 03/14/19 11:30 [facility] (Rec: 03/15/19 17:35 [facility] [email or web address]) OP-PT Subjective Patient Comments Patient Comments pt reports no change with her ability to void but she does feel the fascia around her hip is loosening PT-OP-F Manual Assessment Start: 02/01/19 09:56 Freq: Status: Active Protocol: Document 01/27/19 09:57 [facility] (Rec: 02/01/19 10:53 [facility] [id number]) Manual Assessments Soft Tissue Assessment Soft Tissue Mobility Assessment with assessment over the fascia there is restrictions over the mons pubic, right adductors, left obturator internus and coccygeus, right side of urethra Tightness of the right greater than left iliopsoas is observed with + dale test Joint Mobility Assessment Joint Mobility Assessment Due to right hip replacement there are limitations in right hip mobility of abduction and hip extension limited lumbar ROM into flexion in the lower lumbar spine Other Manual Assessments Other Manual Assessments + dale test right PT-OP-I Pelvic Floor Start: 02/01/19 09:56 Freq: Status: Active Protocol: Document 01/27/19 09:57 [facility] (Rec: 02/01/19 10:53 [facility] [id number]) Pelvic Floor Assessment Urine Pelvic Floor Surgery Yes Urinary Symptoms Urge Sensation Other Urinary Symptoms difficutly initiating the urinary stream Leakage Size Small Other Leakage Causes triggers can vary but change of position from sit to stand can be a trigger Leaks Per Day varies Voiding Frequency 6-8 times per day Nocturia 3+ Pelvic Clock Pelvic Clock 12-3 Atrophy Pelvic Clock 3-6 Tightness Pelvic Clock 6-9 Atrophy Pelvic Clock 9-12 Guarding,Tightness Pelvic Clock Other atrophy noted in the pelvic floor muscles, possible scar tissue restrictions on the right side of the urethra, guarding left obturator internus and coccygeus Contraction Ability Voluntary Contraction Weak Voluntary Relaxation Weak Manual Muscle Testing Left 2 Manual Muscle Testing Right 2 Manual Muscle Testing Anterior 2 Manual Muscle Testing Posterior 2 Muscle Endurance (Seconds) 5 Comments Pelvic Floor Comments able to facilitate the pelvic floor in all parts of the levator ani but weak in all parts as well, difficulty sustaining a pelvic floor contraction PT-OP-J Posture/Palpation/Skin Start: 02/01/19 09:56 Freq: Status: Active Protocol: Document 01/27/19 09:57 [facility] (Rec: 02/01/19 10:53 [facility] [id number]) Palpation Assessment Location Three Palpation Location left obturator internus/ coccygeus Palpation Findings Soft Tissue Tightness Two Palpation Location right adductors Palpation Findings Soft Tissue Tightness,Muscle Guarding,Tenderness One Palpation Location right pubic bone Palpation Findings Soft Tissue Tightness, Tenderness Palpation Details right mons pubis region tightness, scar tissue tightness noted right side of the urethra internally PT-OP-Q Treatments Start: 02/01/19 09:56 Freq: Status: Active Protocol: Document 03/14/19 11:30 [facility] (Rec: 03/15/19 17:35 [facility] [id number]) Manual Therapy Treatment Soft Tissue Mobilization 5 Body Location fascial release over the hip scar on the right 4 Body Location left illiococcygeus release Comments internally with manual stretch 3 Body Location right side of urethera Mobilization Type Sustained Pressure,Trigger Point Release Intensity/Depth Superficial Body Position Hooklying Comments good tolerance, no increase in pain 2 Body Location right adductors and attachment to the pubic bone Mobilization Type Myofascial Release Intensity/Depth Moderate Body Position Hooklying Comments good tolerance for treatment 1 Body Location right mons pubis Mobilization Type Myofascial Release,Rolling Intensity/Depth Superficial Body Position Hooklying Comments good tolerance for treatment PT-OP-T Assessment and Plan Start: 02/01/19 09:56 Freq: Status: Active Protocol: Document 03/14/19 11:30 [facility] (Rec: 03/15/19 17:35 [facility] [email or web address]) Physical Therapy Assessment Assessment Summary Assessment with interanl work the left deep posterior pelvic floor muscles are still tight. Work towards relaxation here Physical Therapy Plan Next Visit Focus/Plan Next Note Type Treatment Note Next Visit Plan review pelvic floor stretches next visit, review bootie sit and continue to work on mobilizing the right side fascia of the pelvis and hip
--- NOTE | 2019-03-23 09:40 | PT.OTN ---
Current Diagnoses Other specified disorders of muscle (03/21/19) Pelvic and perineal pain (03/21/19) Physical Therapy Treatment Note PT-OP-A Visit Information Start: 02/01/19 09:56 Freq: Status: Active Protocol: Document 03/21/19 11:30 [facility] (Rec: 03/23/19 09:40 [facility] [email or web address]) Out-Patient Physical Therapy Visit Information Visit Information Visit Type Treatment Note Visit Start Time 11:30 Visit Stop Time 12:15 Total Visit Minutes 45 Visit Number 6 PT-OP-B Current Condition Start: 02/01/19 09:56 Freq: Status: Active Protocol: Document 01/27/19 09:57 [facility] (Rec: 02/01/19 10:53 [facility] [id number]) Current Condition History of Current Condition Onset Date 2001 Current Complaints pelvic pain, difficulty voiding, dyspareunia History of Current Condition Mera reports her symptoms began in 2001 following her hysterectomy and urethral sling surgery. She reports feeling as if the right side near the pubic bone is impinged She reports being unable to have intercourse at this time as it feels like a knife is in my right side. She c/o pain at the pubic bone and the referred pain to the inner thigh. Sleep is difficulty as she has pain at night. She also reports having a strong sense of urgency during the day to void . With toileting she reports she has to lean forward and move her body to the exact right position in order to start her urine stream. She does report urinary leakage and leakage varies depending on activity but it is often with changing positions. Other past medical history includes a right hip replacement in September of 2015 this was a anterior approach and was redone in 2017 due to complications. She also had her left knee replaced in 2016 . She underwent spinal surgery for L3-4 stenosis in June. She is currently taking hydrocodone for pain and alprazolam for sleep Treatment Goals Patient/Caregiver Goals Goal include reducing pelvic pain and tightness for improved function and to be able to engage in intercourse with her Current Functional Impairments (Reported) Functional Limitations- ADL's limited in sitting for long durations, sleep is disturbed due to pain Functional Limitations- Other unable to engage in intercourse with her due to pain PT-OP-C Subjective Start: 02/01/19 09:56 Freq: Status: Active Protocol: Document 03/21/19 11:30 [facility] (Rec: 03/23/19 09:40 [facility] [email or web address]) OP-PT Subjective Patient Comments Patient Comments pt reports she is really sore today from working all weekend , she can feel symptoms all the way down into her right foot PT-OP-F Manual Assessment Start: 02/01/19 09:56 Freq: Status: Active Protocol: Document 01/27/19 09:57 [facility] (Rec: 02/01/19 10:53 [facility] [id number]) Manual Assessments Soft Tissue Assessment Soft Tissue Mobility Assessment with assessment over the fascia there is restrictions over the mons pubic, right adductors, left obturator internus and coccygeus, right side of urethra Tightness of the right greater than left iliopsoas is observed with + dale test Joint Mobility Assessment Joint Mobility Assessment Due to right hip replacement there are limitations in right hip mobility of abduction and hip extension limited lumbar ROM into flexion in the lower lumbar spine Other Manual Assessments Other Manual Assessments + dale test right PT-OP-I Pelvic Floor Start: 02/01/19 09:56 Freq: Status: Active Protocol: Document 01/27/19 09:57 [facility] (Rec: 02/01/19 10:53 [facility] [id number]) Pelvic Floor Assessment Urine Pelvic Floor Surgery Yes Urinary Symptoms Urge Sensation Other Urinary Symptoms difficutly initiating the urinary stream Leakage Size Small Other Leakage Causes triggers can vary but change of position from sit to stand can be a trigger Leaks Per Day varies Voiding Frequency 6-8 times per day Nocturia 3+ Pelvic Clock Pelvic Clock 12-3 Atrophy Pelvic Clock 3-6 Tightness Pelvic Clock 6-9 Atrophy Pelvic Clock 9-12 Guarding,Tightness Pelvic Clock Other atrophy noted in the pelvic floor muscles, possible scar tissue restrictions on the right side of the urethra, guarding left obturator internus and coccygeus Contraction Ability Voluntary Contraction Weak Voluntary Relaxation Weak Manual Muscle Testing Left 2 Manual Muscle Testing Right 2 Manual Muscle Testing Anterior 2 Manual Muscle Testing Posterior 2 Muscle Endurance (Seconds) 5 Comments Pelvic Floor Comments able to facilitate the pelvic floor in all parts of the levator ani but weak in all parts as well, difficulty sustaining a pelvic floor contraction PT-OP-J Posture/Palpation/Skin Start: 02/01/19 09:56 Freq: Status: Active Protocol: Document 01/27/19 09:57 [facility] (Rec: 02/01/19 10:53 [facility] [id number]) Palpation Assessment Location Three Palpation Location left obturator internus/ coccygeus Palpation Findings Soft Tissue Tightness Two Palpation Location right adductors Palpation Findings Soft Tissue Tightness,Muscle Guarding,Tenderness One Palpation Location right pubic bone Palpation Findings Soft Tissue Tightness, Tenderness Palpation Details right mons pubis region tightness, scar tissue tightness noted right side of the urethra internally PT-OP-Q Treatments Start: 02/01/19 09:56 Freq: Status: Active Protocol: Document 03/21/19 11:30 [facility] (Rec: 03/23/19 09:40 [facility] [email or web address]) Manual Therapy Treatment Soft Tissue Mobilization 5 Body Location fascial release over the hip scar on the right 2 Body Location right adductors and attachment to the pubic bone Mobilization Type Myofascial Release Intensity/Depth Moderate Body Position Hooklying Comments good tolerance for treatment 1 Body Location right mons pubis Mobilization Type Myofascial Release,Rolling Intensity/Depth Superficial Body Position Hooklying Comments good tolerance for treatment PT-OP-T Assessment and Plan Start: 02/01/19 09:56 Freq: Status: Active Protocol: Document 03/21/19 11:30 [facility] (Rec: 03/23/19 09:40 [facility] [email or web address]) Physical Therapy Assessment Assessment Summary Assessment MRF helps to reduce pain in the LE and foot, improving mobility of the scar tissue over the right hip. Still experiencing difficulty voiding Physical Therapy Plan Frequency and Duration Frequency of Treatment 1x/Week Duration of Treatment 8 Plan of Care Start Date 01/27/19 Plan of Care End Date 03/24/19 Therapeutic Interventions Therapeutic Interventions Home Exercise Program,Manual Therapy,Patient/Caregiver Education,Self-Care/Home Management,Soft Tissue Mobilization,Therapeutic Exercises Modalities Biofeedback,Electric Stimulation Next Visit Focus/Plan Next Note Type Treatment Note Next Visit Plan continue to work on MFR, encourage a stretching program for home to keep the fascia lose following treatment
--- NOTE | 2019-03-28 14:24 | PT.OTN ---
Current Diagnoses Other specified disorders of muscle (03/28/19) Pelvic and perineal pain (03/28/19) Physical Therapy Treatment Note PT-OP-A Visit Information Start: 02/01/19 09:56 Freq: Status: Active Protocol: Document 03/28/19 14:14 [facility] (Rec: 03/28/19 14:24 [facility] [email or web address]) Out-Patient Physical Therapy Visit Information Visit Information Visit Type Progress Note Visit Start Time 12:15 Visit Stop Time 13:00 Total Visit Minutes 45 Visit Number 7 PT-OP-B Current Condition Start: 02/01/19 09:56 Freq: Status: Active Protocol: Document 01/27/19 09:57 [facility] (Rec: 02/01/19 10:53 [facility] [id number]) Current Condition History of Current Condition Onset Date 2001 Current Complaints pelvic pain, difficulty voiding, dyspareunia History of Current Condition Mera reports her symptoms began in 2001 following her hysterectomy and urethral sling surgery. She reports feeling as if the right side near the pubic bone is impinged She reports being unable to have intercourse at this time as it feels like a knife is in my right side. She c/o pain at the pubic bone and the referred pain to the inner thigh. Sleep is difficulty as she has pain at night. She also reports having a strong sense of urgency during the day to void . With toileting she reports she has to lean forward and move her body to the exact right position in order to start her urine stream. She does report urinary leakage and leakage varies depending on activity but it is often with changing positions. Other past medical history includes a right hip replacement in September of 2015 this was a anterior approach and was redone in 2017 due to complications. She also had her left knee replaced in 2016 . She underwent spinal surgery for L3-4 stenosis in June. She is currently taking hydrocodone for pain and alprazolam for sleep Treatment Goals Patient/Caregiver Goals Goal include reducing pelvic pain and tightness for improved function and to be able to engage in intercourse with her Current Functional Impairments (Reported) Functional Limitations- ADL's limited in sitting for long durations, sleep is disturbed due to pain Functional Limitations- Other unable to engage in intercourse with her due to pain PT-OP-C Subjective Start: 02/01/19 09:56 Freq: Status: Active Protocol: Document 03/28/19 14:14 [facility] (Rec: 03/28/19 14:24 [facility] [email or web address]) OP-PT Subjective Patient Comments Patient Comments Mera reports she can tell the MFR is really helping. She is still feeling the nerve pain symptoms PT-OP-F Manual Assessment Start: 02/01/19 09:56 Freq: Status: Active Protocol: Document 01/27/19 09:57 [facility] (Rec: 02/01/19 10:53 [facility] [id number]) Manual Assessments Soft Tissue Assessment Soft Tissue Mobility Assessment with assessment over the fascia there is restrictions over the mons pubic, right adductors, left obturator internus and coccygeus, right side of urethra Tightness of the right greater than left iliopsoas is observed with + dale test Joint Mobility Assessment Joint Mobility Assessment Due to right hip replacement there are limitations in right hip mobility of abduction and hip extension limited lumbar ROM into flexion in the lower lumbar spine Other Manual Assessments Other Manual Assessments + dale test right PT-OP-I Pelvic Floor Start: 02/01/19 09:56 Freq: Status: Active Protocol: Document 01/27/19 09:57 [facility] (Rec: 02/01/19 10:53 [facility] [id number]) Pelvic Floor Assessment Urine Pelvic Floor Surgery Yes Urinary Symptoms Urge Sensation Other Urinary Symptoms difficutly initiating the urinary stream Leakage Size Small Other Leakage Causes triggers can vary but change of position from sit to stand can be a trigger Leaks Per Day varies Voiding Frequency 6-8 times per day Nocturia 3+ Pelvic Clock Pelvic Clock 12-3 Atrophy Pelvic Clock 3-6 Tightness Pelvic Clock 6-9 Atrophy Pelvic Clock 9-12 Guarding,Tightness Pelvic Clock Other atrophy noted in the pelvic floor muscles, possible scar tissue restrictions on the right side of the urethra, guarding left obturator internus and coccygeus Contraction Ability Voluntary Contraction Weak Voluntary Relaxation Weak Manual Muscle Testing Left 2 Manual Muscle Testing Right 2 Manual Muscle Testing Anterior 2 Manual Muscle Testing Posterior 2 Muscle Endurance (Seconds) 5 Comments Pelvic Floor Comments able to facilitate the pelvic floor in all parts of the levator ani but weak in all parts as well, difficulty sustaining a pelvic floor contraction PT-OP-J Posture/Palpation/Skin Start: 02/01/19 09:56 Freq: Status: Active Protocol: Document 01/27/19 09:57 [facility] (Rec: 02/01/19 10:53 [facility] [id number]) Palpation Assessment Location Three Palpation Location left obturator internus/ coccygeus Palpation Findings Soft Tissue Tightness Two Palpation Location right adductors Palpation Findings Soft Tissue Tightness,Muscle Guarding,Tenderness One Palpation Location right pubic bone Palpation Findings Soft Tissue Tightness, Tenderness Palpation Details right mons pubis region tightness, scar tissue tightness noted right side of the urethra internally PT-OP-Q Treatments Start: 02/01/19 09:56 Freq: Status: Active Protocol: Document 03/28/19 14:14 [facility] (Rec: 03/28/19 14:24 [facility] [email or web address]) Manual Therapy Treatment Soft Tissue Mobilization 5 Body Location fascial release over the hip scar on the right 2 Body Location right adductors and attachment to the pubic bone Mobilization Type Myofascial Release Intensity/Depth Moderate Body Position Hooklying Comments good tolerance for treatment 1 Body Location right mons pubis Mobilization Type Myofascial Release,Rolling Intensity/Depth Superficial Body Position Hooklying Comments good tolerance for treatment PT-OP-T Assessment and Plan Start: 02/01/19 09:56 Freq: Status: Active Protocol: Document 03/28/19 14:14 [facility] (Rec: 03/28/19 14:24 [facility] [id number]) Physical Therapy Assessment Goals Four Impairment myofascial restrictions right mons pubis and right side of urethra Supervisor Boarding Goal (LTG) with manual therapy techniques improve myofasical mobility to decrease pain and Mera reports greater ease with voiding to not have to bend forward from the waist to void . LTG Duration 8 weeks Three Impairment Pelvic floor muscle weakness 2 /5 MMT Supervisor Boarding Goal (LTG) Improve both endurance of the pelvic floor to 10 second hold time and strength of the pelvic floor by at least one muscle grade for improved support of the pelvis LTG Duration 8 weeks Two Impairment pelvic floor tightness left obturator internus, coccygeus, R adductors Short Term Goal (STG) Mera is educated in a HEP for pelvic floor stretching and right hip stretching GOAL MET STG Duration 4 weeks Custodial Goal (LTG) Decrease muscle guarding of the left oburatur internus and improve mobility of the right adductors to decrease pain both with sitting and with intercourse LTG Duration 8 weeks One Impairment R sided pelvic pain rated 6/10 Short Term Goal (STG) With PT treatments Mera's pain levels will slowly decrease to 3-4 or better/10 STG Duration 4 weeks Supervisor Boarding Goal (LTG) Mera is able to resume intercourse with her without increased pain LTG Duration 8 weeks + Assessment Summary Assessment Mera is being treated in PT for c/o pelvic pain and difficulty voiding. She is still experiencing pain referred into the inner thigh and has continued c/o pubic pain. There is improvement in the mobility of the anterior /lateral hip and fascial mobility over the pubic bone and adductors. Mera reports overall a reduction in tightness in the anterior hip and pelvis There has been no change with nerve pain in the right leg. Mera has 3 PT visits left. Treatment will continue to work on myofascial restrictions as well as pelvic floor stabilization and stretches Physical Therapy Plan Frequency and Duration Frequency of Treatment 1x/Week Duration of Treatment 8 Plan of Care Start Date 03/28/19 Plan of Care End Date 04/27/19 Therapeutic Interventions Therapeutic Interventions Home Exercise Program,Manual Therapy,Patient/Caregiver Education,Self-Care/Home Management,Soft Tissue Mobilization,Therapeutic Exercises Modalities Biofeedback,Electric Stimulation Next Visit Focus/Plan Next Note Type Treatment Note Next Visit Plan continue to work on MFR, encourage a stretching program for home to keep the fascia lose following treatment
--- NOTE | 2019-03-28 14:24 | PT.OPPOC ---
Current Diagnoses Other specified disorders of muscle (03/28/19) Pelvic and perineal pain (03/28/19) Visit Care Team Role Provider Type Mat Boyce MD Primary Care Provider Physician Specialty: Internal Medicine Address: [address] [place] [address], [address], [id number] Email: [email or web address] Chanelle Chaparro MD Attending Provider Physician Specialty: ASSISTANT PROFESSOR NURSE EDUCATION Address: [address] [place] [address], [id number] Email: [email or web address] Plan Of Care PT-OP-T Assessment and Plan Start: 02/01/19 09:56 Freq: Status: Active Protocol: Document 03/28/19 14:14 [facility] (Rec: 03/28/19 14:24 [facility] [email or web address]) Physical Therapy Assessment Goals Four Impairment myofascial restrictions right mons pubis and right side of urethra [facility] Goal (LTG) with manual therapy techniques improve myofasical mobility to decrease pain and Mera reports greater ease with voiding to not have to bend forward from the waist to void . LTG Duration 8 weeks Three Impairment Pelvic floor muscle weakness 2 /5 MMT Charge Histotechnologist Goal (LTG) Improve both endurance of the pelvic floor to 10 second hold time and strength of the pelvic floor by at least one muscle grade for improved support of the pelvis LTG Duration 8 weeks Two Impairment pelvic floor tightness left obturator internus, coccygeus, R adductors Short Term Goal (STG) Mera is educated in a HEP for pelvic floor stretching and right hip stretching GOAL MET STG Duration 4 weeks [facility] Goal (LTG) Decrease muscle guarding of the left oburatur internus and improve mobility of the right adductors to decrease pain both with sitting and with intercourse LTG Duration 8 weeks One Impairment R sided pelvic pain rated 6/10 Short Term Goal (STG) With PT treatments Mera's pain levels will slowly decrease to 3-4 or better/10 STG Duration 4 weeks Charge Histotechnologist Goal (LTG) Mera is able to resume intercourse with her without increased pain LTG Duration 8 weeks + Assessment Summary Assessment Mera is being treated in PT for c/o pelvic pain and difficulty voiding. She is still experiencing pain referred into the inner thigh and has continued c/o pubic pain. There is improvment in the mobility of the anterior /lateral hip and fascial mobility over the pubic bone and adductors. Mera reports overall a reduction in tightness in the anterior hip and pelvis There has been no change with nerve pain in the right leg. Mera has 3 PT visits left. Treatment will continue to work on myofascial restrictions as well as pelvic floor stabilization and stretches Physical Therapy Plan Frequency and Duration Frequency of Treatment 1x/Week Duration of Treatment 8 Plan of Care Start Date 03/28/19 Plan of Care End Date 04/27/19 Therapeutic Interventions Therapeutic Interventions Home Exercise Program,Manual Therapy,Patient/Caregiver Education,Self-Care/Home Management,Soft Tissue Mobilization,Therapeutic Exercises Modalities Biofeedback,Electric Stimulation Next Visit Focus/Plan Next Note Type Treatment Note Next Visit Plan continue to work on MFR, encourage a stretching program for home to keep the fascia lose following treatment Plan of Care Dates Plan of Care Start Date 03/28/19 Plan of Care End Date 04/27/19
--- NOTE | 2019-04-05 10:30 | PT.OTN ---
Current Diagnoses Other specified disorders of muscle (04/05/19) Pelvic and perineal pain (04/05/19) Physical Therapy Treatment Note PT-OP-A Visit Information Start: 02/01/19 09:56 Freq: Status: Active Protocol: Document 04/05/19 10:30 [facility] (Rec: 04/06/19 09:37 [facility] [email or web address]) Out-Patient Physical Therapy Visit Information Visit Information Visit Type Treatment Note Visit Start Time 10:30 Visit Stop Time 11:15 Total Visit Minutes 34 Visit Number 8 PT-OP-B Current Condition Start: 02/01/19 09:56 Freq: Status: Active Protocol: Document 01/27/19 09:57 [facility] (Rec: 02/01/19 10:53 [facility] [id number]) Current Condition History of Current Condition Onset Date 2001 Current Complaints pelvic pain, difficulty voiding, dyspareunia History of Current Condition Mera reports her symptoms began in 2001 following her hysterectomy and urethral sling surgery. She reports feeling as if the right side near the pubic bone is impinged She reports being unable to have intercourse at this time as it feels like a knife is in my right side. She c/o pain at the pubic bone and the referred pain to the inner thigh. Sleep is difficulty as she has pain at night. She also reports having a strong sense of urgency during the day to void . With toileting she reports she has to lean forward and move her body to the exact right position in order to start her urine stream. She does report urinary leakage and leakage varies depending on activity but it is often with changing positions. Other past medical history includes a right hip replacement in September of 2015 this was a anterior approach and was redone in 2017 due to complications. She also had her left knee replaced in 2016 . She underwent spinal surgery for L3-4 stenosis in June. She is currently taking hydrocodone for pain and alprazolam for sleep Treatment Goals Patient/Caregiver Goals Goal include reducing pelvic pain and tightness for improved function and to be able to engage in intercourse with her Current Functional Impairments (Reported) Functional Limitations- ADL's limited in sitting for long durations, sleep is disturbed due to pain Functional Limitations- Other unable to engage in intercourse with her due to pain PT-OP-C Subjective Start: 02/01/19 09:56 Freq: Status: Active Protocol: Document 04/05/19 10:30 [facility] (Rec: 04/06/19 09:37 [facility] [email or web address]) OP-PT Subjective Patient Comments Patient Comments Mera reports her tightness in her right leg is improving. She is still in pain often and voiding has not changed PT-OP-F Manual Assessment Start: 02/01/19 09:56 Freq: Status: Active Protocol: Document 01/27/19 09:57 [facility] (Rec: 02/01/19 10:53 [facility] [id number]) Manual Assessments Soft Tissue Assessment Soft Tissue Mobility Assessment with assessment over the fascia there is restrictions over the mons pubic, right adductors, left obturator internus and coccygeus, right side of urethra Tightness of the right greater than left iliopsoas is observed with + dale test Joint Mobility Assessment Joint Mobility Assessment Due to right hip replacement there are limitations in right hip mobility of abduction and hip extension limited lumbar ROM into flexion in the lower lumbar spine Other Manual Assessments Other Manual Assessments + dale test right PT-OP-I Pelvic Floor Start: 02/01/19 09:56 Freq: Status: Active Protocol: Document 01/27/19 09:57 [facility] (Rec: 02/01/19 10:53 [facility] [id number]) Pelvic Floor Assessment Urine Pelvic Floor Surgery Yes Urinary Symptoms Urge Sensation Other Urinary Symptoms difficutly initiating the urinary stream Leakage Size Small Other Leakage Causes triggers can vary but change of position from sit to stand can be a trigger Leaks Per Day varies Voiding Frequency 6-8 times per day Nocturia 3+ Pelvic Clock Pelvic Clock 12-3 Atrophy Pelvic Clock 3-6 Tightness Pelvic Clock 6-9 Atrophy Pelvic Clock 9-12 Guarding,Tightness Pelvic Clock Other atrophy noted in the pelvic floor muscles, possible scar tissue restrictions on the right side of the urethra, guarding left obturator internus and coccygeus Contraction Ability Voluntary Contraction Weak Voluntary Relaxation Weak Manual Muscle Testing Left 2 Manual Muscle Testing Right 2 Manual Muscle Testing Anterior 2 Manual Muscle Testing Posterior 2 Muscle Endurance (Seconds) 5 Comments Pelvic Floor Comments able to facilitate the pelvic floor in all parts of the levator ani but weak in all parts as well, difficulty sustaining a pelvic floor contraction PT-OP-J Posture/Palpation/Skin Start: 02/01/19 09:56 Freq: Status: Active Protocol: Document 01/27/19 09:57 [facility] (Rec: 02/01/19 10:53 [facility] [id number]) Palpation Assessment Location Three Palpation Location left obturator internus/ coccygeus Palpation Findings Soft Tissue Tightness Two Palpation Location right adductors Palpation Findings Soft Tissue Tightness,Muscle Guarding,Tenderness One Palpation Location right pubic bone Palpation Findings Soft Tissue Tightness, Tenderness Palpation Details right mons pubis region tightness, scar tissue tightness noted right side of the urethra internally PT-OP-Q Treatments Start: 02/01/19 09:56 Freq: Status: Active Protocol: Document 04/05/19 10:30 [facility] (Rec: 04/06/19 09:37 [facility] [email or web address]) Manual Therapy Treatment Soft Tissue Mobilization 5 Body Location fascial release over the hip scar on the right 2 Body Location right adductors and attachment to the pubic bone Mobilization Type Myofascial Release Intensity/Depth Moderate Body Position Hooklying Comments good tolerance for treatment 1 Body Location right mons pubis Mobilization Type Myofascial Release,Rolling Intensity/Depth Superficial Body Position Hooklying Comments good tolerance for treatment PT-OP-T Assessment and Plan Start: 02/01/19 09:56 Freq: Status: Active Protocol: Document 04/05/19 10:30 [facility] (Rec: 04/06/19 09:37 [facility] [email or web address]) Physical Therapy Assessment Assessment Summary Assessment improving fascial mobilty of the right LE and pelvic region Physical Therapy Plan Frequency and Duration Frequency of Treatment 1x/Week Duration of Treatment 8 Plan of Care Start Date 03/28/19 Plan of Care End Date 04/27/19 Therapeutic Interventions Therapeutic Interventions Home Exercise Program,Manual Therapy,Patient/Caregiver Education,Self-Care/Home Management,Soft Tissue Mobilization,Therapeutic Exercises Modalities Biofeedback,Electric Stimulation Next Visit Focus/Plan Next Note Type Treatment Note Next Visit Plan continue to work on MFR, encourage a stretching program for home to keep the fascia lose following treatment
--- NOTE | 2019-04-06 09:37 | PT.OTN ---
Current Diagnoses Other specified disorders of muscle (04/05/19) Pelvic and perineal pain (04/05/19) Physical Therapy Treatment Note PT-OP-A Visit Information Start: 02/01/19 09:56 Freq: Status: Active Protocol: Document 04/05/19 10:30 [facility] (Rec: 04/06/19 09:37 [facility] [email or web address]) Out-Patient Physical Therapy Visit Information Visit Information Visit Type Treatment Note Visit Start Time 10:30 Visit Stop Time 11:15 Total Visit Minutes 34 Visit Number 8 PT-OP-B Current Condition Start: 02/01/19 09:56 Freq: Status: Active Protocol: Document 01/27/19 09:57 [facility] (Rec: 02/01/19 10:53 [facility] [id number]) Current Condition History of Current Condition Onset Date 2001 Current Complaints pelvic pain, difficulty voiding, dyspareunia History of Current Condition Mera reports her symptoms began in 2001 following her hysterectomy and urethral sling surgery. She reports feeling as if the right side near the pubic bone is impinged She reports being unable to have intercourse at this time as it feels like a knife is in my right side. She c/o pain at the pubic bone and the referred pain to the inner thigh. Sleep is difficulty as she has pain at night. She also reports having a strong sense of urgency during the day to void . With toileting she reports she has to lean forward and move her body to the exact right position in order to start her urine stream. She does report urinary leakage and leakage varies depending on activity but it is often with changing positions. Other past medical history includes a right hip replacement in September of 2015 this was a anterior approach and was redone in 2017 due to complications. She also had her left knee replaced in 2016 . She underwent spinal surgery for L3-4 stenosis in June. She is currently taking hydrocodone for pain and alprazolam for sleep Treatment Goals Patient/Caregiver Goals Goal include reducing pelvic pain and tightness for improved function and to be able to engage in intercourse with her Current Functional Impairments (Reported) Functional Limitations- ADL's limited in sitting for long durations, sleep is disturbed due to pain Functional Limitations- Other unable to engage in intercourse with her due to pain PT-OP-C Subjective Start: 02/01/19 09:56 Freq: Status: Active Protocol: Document 04/05/19 10:30 [facility] (Rec: 04/06/19 09:37 [facility] [email or web address]) OP-PT Subjective Patient Comments Patient Comments Mera reports her tightness in her right leg is improving. She is still in pain often and voiding has not changed PT-OP-F Manual Assessment Start: 02/01/19 09:56 Freq: Status: Active Protocol: Document 01/27/19 09:57 [facility] (Rec: 02/01/19 10:53 [facility] [id number]) Manual Assessments Soft Tissue Assessment Soft Tissue Mobility Assessment with assessment over the fascia there is restrictions over the mons pubic, right adductors, left obturator internus and coccygeus, right side of urethra Tightness of the right greater than left iliopsoas is observed with + dale test Joint Mobility Assessment Joint Mobility Assessment Due to right hip replacement there are limitations in right hip mobility of abduction and hip extension limited lumbar ROM into flexion in the lower lumbar spine Other Manual Assessments Other Manual Assessments + dale test right PT-OP-I Pelvic Floor Start: 02/01/19 09:56 Freq: Status: Active Protocol: Document 01/27/19 09:57 [facility] (Rec: 02/01/19 10:53 [facility] [id number]) Pelvic Floor Assessment Urine Pelvic Floor Surgery Yes Urinary Symptoms Urge Sensation Other Urinary Symptoms difficutly initiating the urinary stream Leakage Size Small Other Leakage Causes triggers can vary but change of position from sit to stand can be a trigger Leaks Per Day varies Voiding Frequency 6-8 times per day Nocturia 3+ Pelvic Clock Pelvic Clock 12-3 Atrophy Pelvic Clock 3-6 Tightness Pelvic Clock 6-9 Atrophy Pelvic Clock 9-12 Guarding,Tightness Pelvic Clock Other atrophy noted in the pelvic floor muscles, possible scar tissue restrictions on the right side of the urethra, guarding left obturator internus and coccygeus Contraction Ability Voluntary Contraction Weak Voluntary Relaxation Weak Manual Muscle Testing Left 2 Manual Muscle Testing Right 2 Manual Muscle Testing Anterior 2 Manual Muscle Testing Posterior 2 Muscle Endurance (Seconds) 5 Comments Pelvic Floor Comments able to facilitate the pelvic floor in all parts of the levator ani but weak in all parts as well, difficulty sustaining a pelvic floor contraction PT-OP-J Posture/Palpation/Skin Start: 02/01/19 09:56 Freq: Status: Active Protocol: Document 01/27/19 09:57 [facility] (Rec: 02/01/19 10:53 [facility] [id number]) Palpation Assessment Location Three Palpation Location left obturator internus/ coccygeus Palpation Findings Soft Tissue Tightness Two Palpation Location right adductors Palpation Findings Soft Tissue Tightness,Muscle Guarding,Tenderness One Palpation Location right pubic bone Palpation Findings Soft Tissue Tightness, Tenderness Palpation Details right mons pubis region tightness, scar tissue tightness noted right side of the urethra internally PT-OP-Q Treatments Start: 02/01/19 09:56 Freq: Status: Active Protocol: Document 04/05/19 10:30 [facility] (Rec: 04/06/19 09:37 [facility] [email or web address]) Manual Therapy Treatment Soft Tissue Mobilization 5 Body Location fascial release over the hip scar on the right 2 Body Location right adductors and attachment to the pubic bone Mobilization Type Myofascial Release Intensity/Depth Moderate Body Position Hooklying Comments good tolerance for treatment 1 Body Location right mons pubis Mobilization Type Myofascial Release,Rolling Intensity/Depth Superficial Body Position Hooklying Comments good tolerance for treatment PT-OP-T Assessment and Plan Start: 02/01/19 09:56 Freq: Status: Active Protocol: Document 04/05/19 10:30 [facility] (Rec: 04/06/19 09:37 [facility] [email or web address]) Physical Therapy Assessment Assessment Summary Assessment improving fascial mobilty of the right LE and pelvic region Physical Therapy Plan Frequency and Duration Frequency of Treatment 1x/Week Duration of Treatment 8 Plan of Care Start Date 03/28/19 Plan of Care End Date 04/27/19 Therapeutic Interventions Therapeutic Interventions Home Exercise Program,Manual Therapy,Patient/Caregiver Education,Self-Care/Home Management,Soft Tissue Mobilization,Therapeutic Exercises Modalities Biofeedback,Electric Stimulation Next Visit Focus/Plan Next Note Type Treatment Note Next Visit Plan continue to work on MFR, encourage a stretching program for home to keep the fascia lose following treatment
--- NOTE | 2019-04-14 10:45 | PT.OTN ---
Current Diagnoses Other specified disorders of muscle (04/19/19) Pelvic and perineal pain (04/19/19) Physical Therapy Treatment Note PT-OP-A Visit Information Start: 02/01/19 09:56 Freq: Status: Active Protocol: Document 04/14/19 10:30 [facility] (Rec: 04/19/19 17:14 [facility] [email or web address]) Out-Patient Physical Therapy Visit Information Visit Information Visit Type Treatment Note Visit Start Time 10:45 Visit Stop Time 11:15 Total Visit Minutes 30 Visit Number 9 PT-OP-B Current Condition Start: 02/01/19 09:56 Freq: Status: Active Protocol: Document 01/27/19 09:57 [facility] (Rec: 02/01/19 10:53 [facility] [id number]) Current Condition History of Current Condition Onset Date 2001 Current Complaints pelvic pain, difficulty voiding, dyspareunia History of Current Condition Mera reports her symptoms began in 2001 following her hysterectomy and urethral sling surgery. She reports feeling as if the right side near the pubic bone is impinged She reports being unable to have intercourse at this time as it feels like a knife is in my right side. She c/o pain at the pubic bone and the referred pain to the inner thigh. Sleep is difficulty as she has pain at night. She also reports having a strong sense of urgency during the day to void . With toileting she reports she has to lean forward and move her body to the exact right position in order to start her urine stream. She does report urinary leakage and leakage varies depending on activity but it is often with changing positions. Other past medical history includes a right hip replacement in September of 2015 this was a anterior approach and was redone in 2017 due to complications. She also had her left knee replaced in 2016 . She underwent spinal surgery for L3-4 stenosis in June. She is currently taking hydrocodone for pain and alprazolam for sleep Treatment Goals Patient/Caregiver Goals Goal include reducing pelvic pain and tightness for improved function and to be able to engage in intercourse with her Current Functional Impairments (Reported) Functional Limitations- ADL's limited in sitting for long durations, sleep is disturbed due to pain Functional Limitations- Other unable to engage in intercourse with her due to pain PT-OP-C Subjective Start: 02/01/19 09:56 Freq: Status: Active Protocol: Document 04/14/19 10:30 [facility] (Rec: 04/19/19 17:14 [facility] [email or web address]) OP-PT Subjective Patient Comments Patient Comments Mera reports she is sleeping better PT-OP-F Manual Assessment Start: 02/01/19 09:56 Freq: Status: Active Protocol: Document 01/27/19 09:57 [facility] (Rec: 02/01/19 10:53 [facility] [id number]) Manual Assessments Soft Tissue Assessment Soft Tissue Mobility Assessment with assessment over the fascia there is restrictions over the mons pubic, right adductors, left obturator internus and coccygeus, right side of urethra Tightness of the right greater than left iliopsoas is observed with + dale test Joint Mobility Assessment Joint Mobility Assessment Due to right hip replacement there are limitations in right hip mobility of abduction and hip extension limited lumbar ROM into flexion in the lower lumbar spine Other Manual Assessments Other Manual Assessments + dale test right PT-OP-I Pelvic Floor Start: 02/01/19 09:56 Freq: Status: Active Protocol: Document 01/27/19 09:57 [facility] (Rec: 02/01/19 10:53 [facility] [id number]) Pelvic Floor Assessment Urine Pelvic Floor Surgery Yes Urinary Symptoms Urge Sensation Other Urinary Symptoms difficutly initiating the urinary stream Leakage Size Small Other Leakage Causes triggers can vary but change of position from sit to stand can be a trigger Leaks Per Day varies Voiding Frequency 6-8 times per day Nocturia 3+ Pelvic Clock Pelvic Clock 12-3 Atrophy Pelvic Clock 3-6 Tightness Pelvic Clock 6-9 Atrophy Pelvic Clock 9-12 Guarding,Tightness Pelvic Clock Other atrophy noted in the pelvic floor muscles, possible scar tissue restrictions on the right side of the urethra, guarding left obturator internus and coccygeus Contraction Ability Voluntary Contraction Weak Voluntary Relaxation Weak Manual Muscle Testing Left 2 Manual Muscle Testing Right 2 Manual Muscle Testing Anterior 2 Manual Muscle Testing Posterior 2 Muscle Endurance (Seconds) 5 Comments Pelvic Floor Comments able to facilitate the pelvic floor in all parts of the levator ani but weak in all parts as well, difficulty sustaining a pelvic floor contraction PT-OP-J Posture/Palpation/Skin Start: 02/01/19 09:56 Freq: Status: Active Protocol: Document 01/27/19 09:57 [facility] (Rec: 02/01/19 10:53 [facility] [id number]) Palpation Assessment Location Three Palpation Location left obturator internus/ coccygeus Palpation Findings Soft Tissue Tightness Two Palpation Location right adductors Palpation Findings Soft Tissue Tightness,Muscle Guarding,Tenderness One Palpation Location right pubic bone Palpation Findings Soft Tissue Tightness, Tenderness Palpation Details right mons pubis region tightness, scar tissue tightness noted right side of the urethra internally PT-OP-Q Treatments Start: 02/01/19 09:56 Freq: Status: Active Protocol: Document 04/14/19 10:30 [facility] (Rec: 04/19/19 17:14 [facility] [id number]) Manual Therapy Treatment Soft Tissue Mobilization 5 Body Location fascial release over the hip scar on the right 2 Body Location right adductors and attachment to the pubic bone Mobilization Type Myofascial Release Intensity/Depth Moderate Body Position Hooklying Comments good tolerance for treatment 1 Body Location right mons pubis Mobilization Type Myofascial Release,Rolling Intensity/Depth Superficial Body Position Hooklying Comments good tolerance for treatment PT-OP-T Assessment and Plan Start: 02/01/19 09:56 Freq: Status: Active Protocol: Document 04/14/19 10:30 [facility] (Rec: 04/19/19 17:14 [facility] [id number]) Physical Therapy Assessment Assessment Summary Assessment improving sleep quality and decreasing myofascial tightness. Pt was 15 min late today so treatment was shortened Physical Therapy Plan Next Visit Focus/Plan Next Note Type Treatment Note Next Visit Plan continue to work on MFR, encourage a stretching program for home to keep the fascia lose following treatment
--- NOTE | 2019-04-19 17:27 | PT.OTN ---
Current Diagnoses Other specified disorders of muscle (04/19/19) Pelvic and perineal pain (04/19/19) Physical Therapy Treatment Note PT-OP-A Visit Information Start: 02/01/19 09:56 Freq: Status: Active Protocol: Document 04/19/19 17:15 [facility] (Rec: 04/19/19 17:27 [facility] [id number]) Out-Patient Physical Therapy Visit Information Visit Information Visit Type Treatment Note Visit Start Time 10:30 Visit Stop Time 11:15 Total Visit Minutes 45 Visit Number 10 PT-OP-B Current Condition Start: 02/01/19 09:56 Freq: Status: Active Protocol: Document 01/27/19 09:57 [facility] (Rec: 02/01/19 10:53 [facility] [id number]) Current Condition History of Current Condition Onset Date 2001 Current Complaints pelvic pain, difficulty voiding, dyspareunia History of Current Condition Mera reports her symptoms began in 2001 following her hysterectomy and urethral sling surgery. She reports feeling as if the right side near the pubic bone is impinged She reports being unable to have intercourse at this time as it feels like a knife is in my right side. She c/o pain at the pubic bone and the referred pain to the inner thigh. Sleep is difficulty as she has pain at night. She also reports having a strong sense of urgency during the day to void . With toileting she reports she has to lean forward and move her body to the exact right position in order to start her urine stream. She does report urinary leakage and leakage varies depending on activity but it is often with changing positions. Other past medical history includes a right hip replacement in September of 2015 this was a anterior approach and was redone in 2017 due to complications. She also had her left knee replaced in 2016 . She underwent spinal surgery for L3-4 stenosis in June. She is currently taking hydrocodone for pain and alprazolam for sleep Treatment Goals Patient/Caregiver Goals Goal include reducing pelvic pain and tightness for improved function and to be able to engage in intercourse with her Current Functional Impairments (Reported) Functional Limitations- ADL's limited in sitting for long durations, sleep is disturbed due to pain Functional Limitations- Other unable to engage in intercourse with her due to pain PT-OP-C Subjective Start: 02/01/19 09:56 Freq: Status: Active Protocol: Document 04/19/19 17:15 [facility] (Rec: 04/19/19 17:27 [facility] [id number]) OP-PT Subjective Patient Comments Patient Comments Mera reports she has been able to sleep on her right side. Symptoms are improving Patient Reported Progress Improving PT-OP-F Manual Assessment Start: 02/01/19 09:56 Freq: Status: Active Protocol: Document 01/27/19 09:57 [facility] (Rec: 02/01/19 10:53 [facility] [id number]) Manual Assessments Soft Tissue Assessment Soft Tissue Mobility Assessment with assessment over the fascia there is restrictions over the mons pubic, right adductors, left obturator internus and coccygeus, right side of urethra Tightness of the right greater than left iliopsoas is observed with + dale test Joint Mobility Assessment Joint Mobility Assessment Due to right hip replacement there are limitations in right hip mobility of abduction and hip extension limited lumbar ROM into flexion in the lower lumbar spine Other Manual Assessments Other Manual Assessments + dale test right PT-OP-I Pelvic Floor Start: 02/01/19 09:56 Freq: Status: Active Protocol: Document 01/27/19 09:57 [facility] (Rec: 02/01/19 10:53 [facility] [id number]) Pelvic Floor Assessment Urine Pelvic Floor Surgery Yes Urinary Symptoms Urge Sensation Other Urinary Symptoms difficutly initiating the urinary stream Leakage Size Small Other Leakage Causes triggers can vary but change of position from sit to stand can be a trigger Leaks Per Day varies Voiding Frequency 6-8 times per day Nocturia 3+ Pelvic Clock Pelvic Clock 12-3 Atrophy Pelvic Clock 3-6 Tightness Pelvic Clock 6-9 Atrophy Pelvic Clock 9-12 Guarding,Tightness Pelvic Clock Other atrophy noted in the pelvic floor muscles, possible scar tissue restrictions on the right side of the urethra, guarding left obturator internus and coccygeus Contraction Ability Voluntary Contraction Weak Voluntary Relaxation Weak Manual Muscle Testing Left 2 Manual Muscle Testing Right 2 Manual Muscle Testing Anterior 2 Manual Muscle Testing Posterior 2 Muscle Endurance (Seconds) 5 Comments Pelvic Floor Comments able to facilitate the pelvic floor in all parts of the levator ani but weak in all parts as well, difficulty sustaining a pelvic floor contraction PT-OP-J Posture/Palpation/Skin Start: 02/01/19 09:56 Freq: Status: Active Protocol: Document 01/27/19 09:57 [facility] (Rec: 02/01/19 10:53 [facility] [id number]) Palpation Assessment Location Three Palpation Location left obturator internus/ coccygeus Palpation Findings Soft Tissue Tightness Two Palpation Location right adductors Palpation Findings Soft Tissue Tightness,Muscle Guarding,Tenderness One Palpation Location right pubic bone Palpation Findings Soft Tissue Tightness, Tenderness Palpation Details right mons pubis region tightness, scar tissue tightness noted right side of the urethra internally PT-OP-Q Treatments Start: 02/01/19 09:56 Freq: Status: Active Protocol: Document 04/19/19 17:15 [facility] (Rec: 04/19/19 17:27 [facility] [id number]) Manual Therapy Treatment Soft Tissue Mobilization 5 Body Location fascial release over the hip scar on the right 2 Body Location right adductors and attachment to the pubic bone Mobilization Type Myofascial Release Intensity/Depth Moderate Body Position Hooklying Comments good tolerance for treatment 1 Body Location right mons pubis Mobilization Type Myofascial Release,Rolling Intensity/Depth Superficial Body Position Hooklying Comments good tolerance for treatment PT-OP-T Assessment and Plan Start: 02/01/19 09:56 Freq: Status: Active Protocol: Document 04/19/19 17:15 [facility] (Rec: 04/19/19 17:27 [facility] [id number]) Physical Therapy Assessment Assessment Summary Assessment able to lay on her right side now. Still having difficulty fully voiding. Decreasing myofascial tightness. Physical Therapy Plan Frequency and Duration Frequency of Treatment 1x/Week Duration of Treatment 8 Plan of Care Start Date 03/28/19 Plan of Care End Date 04/27/19 Next Visit Focus/Plan Next Note Type Treatment Note Next Visit Plan continue to work on MFR, encourage a stretching program for home to keep the fascia lose following treatment
== END 2019-04-20 12:56 ==
LOC: PHYS 10:30
PROVIDERS: PCP Student in an Organized Health Care Education/Training Program; Visit Provider Obstetrics & Gynecology
DX: M62.89 Other specified disorders of muscle (principal); R10.2 Pelvic and perineal pain
CPT/HCPCS: 97035; 97140; 97162

== ENCOUNTER → 2019-12-16 11:26 | Outpatient (CLI) | payer OTHER, MEDICAID, SELFPAY ==
[2019-12-16 11:50] LABS: RBC Urine None Seen (0-5/HPF); WBC Urine None Seen (0-5/HPF)
[2019-12-16 12:22] LABS: Appearance Urine UA CLEAR; Bilirubin Urine UA NEGATIVE (NEGATIVE); Color Urine UA YELLOW; Glucose Urine UA NEGATIVE (Negative); Ketones Urine UA NEGATIVE (NEGATIVE); Leukocyte Esterase Urine UA NEGATIVE (NEGATIVE); Nitrite Urine UA NEGATIVE (Negative); Occult Blood Urine UA NEGATIVE (Negative); Protein Urine UA NEGATIVE (Negative); Specific Gravity Urine UA >=1.030 (1.000-1.035); Urobilinogen Urine UA 0.2 E.U./dL (0.2)
[2019-12-16 12:35] LABS: Bacteria Urine Occasional (0-1); Culture Indicated Urine Cult Not Indicated; Squamous Epithelial Cell Urine 0-1 /HPF (0-5/HPF)
[2019-12-16 13:22] LABS: Free T3, Triiodothyronine Free 3.46 pg/mL (2.77-5.27); Free T4, Direct Thyroxine 0.93 ng/dL (0.78-2.19)
[2019-12-16 13:32] LABS: Hepatitis B Surface Antigen NEGATIVE s/c (NEGATIVE)
[2019-12-16 13:35] LABS: Thyroid Stimulating Hormone 1.63 uIU/mL (0.47-4.68)
[2019-12-16 13:48] LABS: HIV 1 & 2 Ab/Ag 4th Gen Combo NEGATIVE (NEGATIVE); Hep C Virus Ab w/Reflex Quant NEGATIVE s/c (NEGATIVE); Urine N gonorrhoeae NOT DETECTED
[2019-12-16 13:49] LABS: Urine Chlamydia NOT DETECTED
[2019-12-17 04:10] LABS: RPR Screen Non Reactive (Non Reactive)
== END ==
PROVIDERS: PCP Student in an Organized Health Care Education/Training Program; Referring Provider Nurse Practitioner; Visit Provider Nurse Practitioner
DX: Z11.3 Encounter for screening for infections with a predominantly sexual mode of transmission (principal); R63.5 Abnormal weight gain
CPT/HCPCS: 36415; 81001; 84439; 84443; 84481; 86592; 86695; 86696; 86803; 87340; 87389; 87491; 87591

== ENCOUNTER → 2020-01-06 11:30 | Outpatient (CLI) | payer OTHER, MEDICAID, SELFPAY ==
[2020-01-06 13:27] LABS: Cholesterol 251 mg/dL (140-199); Glucose 98 mg/dL (80-110); HDL Cholesterol 38 mg/dL (40-60); LDL Cholesterol Calculated 149 mg/dL (<100); Triglycerides 322 mg/dL (35-150)
[2020-01-06 15:00] LABS: Vitamin D 25 Hydroxy (D3) 28.3 ng/mL (30.0-100.0)
== END ==
PROVIDERS: PCP Student in an Organized Health Care Education/Training Program; Referring Provider Student in an Organized Health Care Education/Training Program; Visit Provider Student in an Organized Health Care Education/Training Program
DX: E78.2 Mixed hyperlipidemia (principal); E66.9 Obesity, unspecified; R73.9 Hyperglycemia, unspecified; E55.9 Vitamin D deficiency, unspecified
CPT/HCPCS: 36415; 80061; 82306; 82947

== ENCOUNTER → 2020-01-11 10:27 | Outpatient (CLI) | payer OTHER, MEDICAID, SELFPAY ==
--- NOTE | 2020-01-11 | DI.MG.S_ITS ---
BILATERAL DIGITAL SCREENING MAMMOGRAM 3D/2D WITH CAD: 01/11/2020 CLINICAL: Routine screening. Comparison is made to exams dated: 08/02/2018 mammogram, 08/03/2017 mammogram, and 02/14/2016 mammogram - [facility]. There are scattered fibroglandular elements in both breasts. Current study was also evaluated with a Computer Aided Detection (CAD) system. No significant masses, calcifications, or other findings are seen in either breast. There has been no significant interval change. IMPRESSION: NEGATIVE There is no mammographic evidence of malignancy. A 1 year screening mammogram is recommended. This exam was interpreted at Station ID: [id number]. NOTE: For mammograms, a report in lay terms will be sent to the patient. Approximately 15% of breast malignancies will not be visualized mammographically. In the management of a palpable breast mass, a negative mammogram must not discourage biopsy of a clinically suspicious lesion. Electronically Signed By: Vishnu mckay/nay:01/11/2020 10:53:00 letter sent: Normal Exam ACR BI-RADS Category 1: Negative 3341F
== END ==
PROVIDERS: PCP Student in an Organized Health Care Education/Training Program; Referring Provider Student in an Organized Health Care Education/Training Program; Visit Provider Student in an Organized Health Care Education/Training Program
DX: Z12.31 Encounter for screening mammogram for malignant neoplasm of breast (principal)
CPT/HCPCS: 77063; 77067

== ENCOUNTER → 2020-01-27 14:26 | Outpatient (CLI) | payer OTHER, MEDICAID, SELFPAY | PROVIDERS: PCP Student in an Organized Health Care Education/Training Program; Referring Provider Student in an Organized Health Care Education/Training Program; Visit Provider Student in an Organized Health Care Education/Training Program | DX: Z78.0 Asymptomatic menopausal state (principal) | CPT/HCPCS: 77080 ==

== ENCOUNTER → 2020-04-09 11:05 | Outpatient (CLI) | payer OTHER, MEDICAID, SELFPAY ==
[2020-04-10 07:43] LABS: COVID19 Sendout Not Detected (Not Detect)
== END ==
PROVIDERS: PCP Student in an Organized Health Care Education/Training Program; Visit Provider Physician Assistant
DX: Z11.59 Encounter for screening for other viral diseases (principal)
CPT/HCPCS: 87635

== ENCOUNTER → 2020-08-03 10:28 | Outpatient (CLI) | payer OTHER, MEDICAID, SELFPAY ==
[2020-08-03 12:20] LABS: Alanine Aminotransferase 56 IU/L (<35); Albumin 4.5 g/dL (3.5-5.0); Albumin Globulin Ratio 1.4 (1.0-2.8); Alkaline Phosphatase 59 U/L (38-126); Aspartate Aminotransferase 49 IU/L (14-36); BUN Creatinine Ratio 27.3 (6-22); Bilirubin Total 0.5 mg/dL (0.2-1.3); Blood Urea Nitrogen 15 mg/dL (7-17); Calcium 9.8 mg/dL (8.4-10.2); Carbon Dioxide 30 mmol/L (22-32); Chloride 103 mmol/L (98-107); Estimated Glomerular Filt Rate > 60.0 mL/min (>60); Globulin 3.3 g/dL (1.7-4.1); Glucose 123 mg/dL (80-110); HEMOLYSIS < 15 (0-50); Potassium 4.7 mmol/L (3.4-5.1); Sodium 137 mmol/L (137-145); Total Protein 7.8 g/dL (6.3-8.2)
== END ==
PROVIDERS: PCP Student in an Organized Health Care Education/Training Program; Referring Provider Registered Nurse; Visit Provider Registered Nurse
DX: R21 Rash and other nonspecific skin eruption (principal); Z79.899 Other long term (current) drug therapy
CPT/HCPCS: 36415; 80053

== ENCOUNTER → 2020-08-10 15:13 | Outpatient (CLI) | payer OTHER, MEDICAID, SELFPAY ==
[2020-08-10 16:05] LABS: Hemoglobin A1C% w Est Avg Glu 6.3 % (4.0-6.0)
== END ==
PROVIDERS: PCP Student in an Organized Health Care Education/Training Program; Referring Provider Registered Nurse; Visit Provider Registered Nurse
DX: R73.09 Other abnormal glucose (principal)
CPT/HCPCS: 36415; 83036

== ENCOUNTER → 2020-12-24 09:24 | Outpatient (CLI) | payer OTHER, MEDICAID, SELFPAY ==
--- NOTE | 2020-12-24 09:30 | DI.MG.S_ITS ---
BILATERAL DIGITAL DIAGNOSTIC MAMMOGRAM 3D/2D: 12/24/2020 CLINICAL: Right breast pain. Comparison is made to exams dated: 01/11/2020 mammogram, 08/02/2018 mammogram, and 08/03/2017 mammogram - [facility]. There are scattered fibroglandular elements in both breasts. No significant masses, calcifications, or other findings are seen in either breast. IMPRESSION: INCOMPLETE: NEEDS ADDITIONAL IMAGING EVALUATION There is no abnormality seen in the right breast to correspond with the pain at 3 o'clock, however, ultrasound is recommended. Ultrasound will be performed immediately following the current exam. This exam was interpreted at Station ID: [id number]. NOTE: For mammograms, a report in lay terms will be sent to the patient. Approximately 15% of breast malignancies will not be visualized mammographically. In the management of a palpable breast mass, a negative mammogram must not discourage biopsy of a clinically suspicious lesion. Electronically Signed By: Jose Carlos Pulido M.D. ddp/:12/24/2020 09:59:42 ACR BI-RADS Category 0: Incomplete 3340F
--- NOTE | 2020-12-24 09:31 | DI.US.S_ITS ---
LIMITED ULTRASOUND OF RIGHT BREAST: 12/24/2020 CLINICAL: Focal right breast pain. Comparison is made to exams dated: 12/24/2020 mammogram, 01/11/2020 mammogram, 08/02/2018 mammogram, 08/03/2017 mammogram, 02/14/2016 mammogram, and 03/08/2013 mammogram - [facility]. Real-time ultrasound of the right breast 3 o'clock region was performed on the area of interest. IMPRESSION: NEGATIVE There is no sonographic evidence of malignancy. There is no abnormality seen in the right breast to correspond with the pain at 3 o'clock, however, clinical followup is recommended. A 1 year screening mammogram is recommended. This exam was interpreted at Station ID: [id number]. Electronically Signed By: Jose Carlos saini/nay:12/24/2020 10:28:54 letter sent: Clinical Evaluation Ultrasound BI-RADS: 1 Negative
== END ==
PROVIDERS: PCP Family Medicine; Referring Provider Student in an Organized Health Care Education/Training Program; Visit Provider Student in an Organized Health Care Education/Training Program
DX: N64.4 Mastodynia (principal); R92.2 Inconclusive mammogram
CPT/HCPCS: 76642; 77066; G0279

== ENCOUNTER → 2021-12-31 08:13 | Outpatient (CLI) | payer OTHER, SELFPAY ==
--- NOTE | 2021-12-31 | DI.MG.S_ITS ---
BILATERAL DIGITAL SCREENING MAMMOGRAM 3D/2D WITH CAD: 12/31/2021 CLINICAL: Routine screening. Comparison is made to exams dated: 12/24/2020 mammogram, 01/11/2020 mammogram, and 08/02/2018 mammogram - [facility]. The tissue of both breasts is heterogeneously dense. This may lower the sensitivity of mammography. Current study was also evaluated with a Computer Aided Detection (CAD) system. No significant masses, calcifications, or other findings are seen in either breast. There has been no significant interval change. IMPRESSION: NEGATIVE There is no mammographic evidence of malignancy. A 1 year screening mammogram is recommended. Based on the Tyrer Cuzick model (a risk assessment model) the patient's lifetime risk is 7.1% and her 10 year risk is 3.4%. According to the ACR, ACS, and NCCN guidelines, an annual breast MRI exam along with mammogram is recommended if the patient's lifetime risk is 20% or greater. This exam was interpreted at Station ID: [id number]. NOTE: For mammograms, a report in lay terms will be sent to the patient. Approximately 15% of breast malignancies will not be visualized mammographically. In the management of a palpable breast mass, a negative mammogram must not discourage biopsy of a clinically suspicious lesion. Electronically Signed By: Nieves rene/nay:12/31/2021 17:08:04 letter sent: Normal Exam ACR BI-RADS Category 1: Negative 3341F
== END ==
PROVIDERS: PCP Family Medicine; Referring Provider Family Medicine; Visit Provider Family Medicine
DX: Z12.31 Encounter for screening mammogram for malignant neoplasm of breast (principal)
CPT/HCPCS: 77063; 77067

== ENCOUNTER → 2022-09-17 | Outpatient (CLI) | payer OTHER, SELFPAY ==
--- NOTE | 2022-09-17 | DI.RAD.S_ITS ---
Bone Density Report Name: BHARAT BUCK Age: 67 Sex: Female Ethnicity: White Date of : 1955 Indication: postmenopausal; screening for osteoporosis; prior fracture; Referring Provider: KHADIJAH BALBUENA Study: Bone densitometry was performed. Exam Date: September 17, 2022 Accession number: [id number] Bone Density: Region BMD T-score Z-score Classification AP Spine(L1, L3, L4) 1.228 1.6 3.5 Normal Femoral Neck (Left) 0.914 0.6 2.2 Normal Total Hip (Left) 0.974 0.3 1.6 Normal Total Forearm (Left) 0.573 -0.1 1.6 Normal 1/3 Forearm (Left) 0.675 -0.3 1.5 Normal UD Forearm (Left) 0.452 0.2 1.4 Normal World Health Organization criteria for BMD impression classify patients as: Normal (T-score at or above -1.0), Osteopenia (T-score between -1.0 and -2.5), or Osteoporosis (T-score at or below -2.5). 10-year Fracture Risk: FRAX not reported because: All T-scores for Spine Total, Hip Total, Femoral Neck at or above -1.0 Prior hip or vertebral fracture Previous Exams: -- Region Exam Age BMD T-score BMD Change BMD Change Date g/cm2 vs Baseline vs Previous -- AP Spine (L1,L3-L4) 09/17/2022 67 1.228 1.6 -0.042 (-3.3%)# -0.042 (-3.3%)# 01/27/2020 65 1.270 2.0 Total Hip(Left) 09/17/2022 67 0.974 0.3 -0.001 (-0.1%)# -0.001 (-0.1%)# 01/27/2020 65 0.975 0.3 -- *Denotes significance at 95% confidence level, LSC for AP Spine = 0.022 g/cm2, LSC for Total Hip = 0.027 g/cm2 # Denotes dissimilar scan types or analysis methods Impression: The patient has normal bone mass. The patient has risk factors, including: previous fracture. No significant bone loss was observed. Discussion: INCREASED RISK OF FRACTURE DUE TO HISTORY OF FRACTURE. The patient's previous fracture puts the patient at high risk of a future fracture. In untreated patients, the risk of osteoporotic fracture increases approximately two-fold for each 1.0 SD decrease in T-score. Low bone density is not the only risk factor for fracture; also consider factors such as patient's age, frailty or poor health, risk of falling, risk of injury, previous osteoporotic fracture, family history of osteoporosis, cigarette smoking, low body weight, etc. Not everyone with a low trauma fracture has osteoporosis; osteomalacia and other metabolic bone disorders should also be considered. Patients who have osteoporosis should be evaluated for specific diseases and conditions (secondary causes) that may cause or contribute to bone loss and fracture risk. National Osteoporosis Foundation (NOF) recommends pharmacologic intervention for patients with a prior hip or vertebral fracture regardless of BMD T-score. The patient should follow a healthful lifestyle (good nutrition with adequate calcium and vitamin D, and appropriate weight-bearing exercise). Follow-Up: Consider a repeat BMD and Vertebral Fracture Assessment (VFA) exam in 2 years or sooner if medically necessary, to reassess this patient's status. Reported by: IRMA YI MD on 09/17/2022 10:03:00 AM.
== END ==
PROVIDERS: PCP Family Medicine; Referring Provider Family Medicine; Visit Provider Family Medicine
DX: Z78.0 Asymptomatic menopausal state (principal); Z13.820 Encounter for screening for osteoporosis
CPT/HCPCS: 77080

== ENCOUNTER → 2023-01-01 08:13 | Outpatient (CLI) | payer OTHER, SELFPAY ==
--- NOTE | 2023-01-01 | DI.MG.S_ITS ---
BILATERAL DIGITAL SCREENING MAMMOGRAM 3D/2D WITH CAD: 01/01/2023 CLINICAL: Routine screening. Comparison is made to exams dated: 12/31/2021 mammogram, 12/24/2020 mammogram, 01/11/2020 mammogram, and 08/02/2018 mammogram - [facility]. There are scattered areas of fibroglandular density in both breasts (category b / 25%-50% glandular tissue). Current study was also evaluated with a Computer Aided Detection (CAD) system. No significant masses, calcifications, or other findings are seen in either breast. There has been no significant interval change. IMPRESSION: NEGATIVE There is no mammographic evidence of malignancy. A 1 year screening mammogram is recommended. Based on the Tyrer Cuzick model (a risk assessment model) the patient's lifetime risk is 4.5% and her 10 year risk is 2.2%. According to the ACR, ACS, and NCCN guidelines, an annual breast MRI exam along with mammogram is recommended if the patient's lifetime risk is 20% or greater. This exam was interpreted at Station ID: [id number]. NOTE: For mammograms, a report in lay terms will be sent to the patient. Approximately 15% of breast malignancies will not be visualized mammographically. In the management of a palpable breast mass, a negative mammogram must not discourage biopsy of a clinically suspicious lesion. Electronically Signed By: Faustino celaya/nay:01/01/2023 17:58:28 letter sent: Normal Exam ACR BI-RADS Category 1: Negative 3341F
== END ==
PROVIDERS: PCP Family Medicine; Referring Provider Family Medicine; Visit Provider Family Medicine
DX: Z12.31 Encounter for screening mammogram for malignant neoplasm of breast (principal)
CPT/HCPCS: 77063; 77067

== ENCOUNTER → 2024-05-10 08:33 | Outpatient (CLI) | payer OTHER, SELFPAY ==
--- NOTE | 2024-05-10 | DI.MG.S_ITS ---
BILATERAL DIGITAL SCREENING MAMMOGRAM 3D/2D WITH CAD: 05/10/2024 CLINICAL: Routine screening. Comparison is made to exams dated: 01/01/2023 mammogram, 12/31/2021 mammogram, 01/11/2020 mammogram, 08/02/2018 mammogram, and 08/03/2017 mammogram - [facility]. There are scattered areas of fibroglandular density (category b / 25%-50% glandular tissue). Current study was also evaluated with a Computer Aided Detection (CAD) system. There is a new asymmetry in the left breast posterior depth inferior region seen on the mediolateral oblique view only. No other significant masses, calcifications, or other findings are seen in either breast. IMPRESSION: INCOMPLETE: NEED ADDITIONAL IMAGING EVALUATION The new asymmetry in the left breast is indeterminate. Additional views with possible ultrasound are recommended. Based on the Tyrer Cuzick model (a risk assessment model) the patient's lifetime risk is 4.0% and her 10 year risk is 2.2%. According to the ACR, ACS, and NCCN guidelines, an annual breast MRI exam along with mammogram is recommended if the patient's lifetime risk is 20% or greater. This exam was interpreted at Station ID: [id number]. NOTE: For mammograms, a report in lay terms will be sent to the patient. Approximately 15% of breast malignancies will not be visualized mammographically. In the management of a palpable breast mass, a negative mammogram must not discourage biopsy of a clinically suspicious lesion. Electronically Signed By: Faustino Contreras M.D. slc/:05/10/2024 11:54:34 letter sent: Additional Imaging Needed ACR BI-RADS Category 0: Incomplete: Need Additional Imaging Evaluation
== END ==
LOC: MAMMO 08:33
PROVIDERS: PCP Family Medicine; Referring Provider Family Medicine; Visit Provider Family Medicine
DX: Z12.31 Encounter for screening mammogram for malignant neoplasm of breast (principal)
CPT/HCPCS: 77063; 77067

== ENCOUNTER → 2024-06-01 09:23 | Outpatient (CLI) | payer OTHER, SELFPAY ==
--- NOTE | 2024-06-01 09:24 | DI.MG.S_ITS ---
UNILATERAL LEFT DIGITAL DIAGNOSTIC MAMMOGRAM 3D/2D WITH ADDITIONAL VIEWS: 06/01/2024 CLINICAL: Additional evaluation requested from prior study. Comparison is made to exams dated: 05/10/2024 mammogram, 01/01/2023 mammogram, and 12/31/2021 mammogram - [facility]. There are scattered areas of fibroglandular density (category b / 25%-50% glandular tissue). There is a 0.7 cm oval mass with a circumscribed margin in the left breast at 6 o'clock posterior depth. This corresponds to finding seen on recent screening mammogram. No other significant masses or calcifications are seen in the breast. IMPRESSION: INCOMPLETE: NEED ADDITIONAL IMAGING EVALUATION The 0.7 cm oval mass in the left breast is indeterminate. An ultrasound is recommended for further evaluation and is scheduled to immediately follow this examination. Based on the Tyrer Cuzick model (a risk assessment model) the patient's lifetime risk is 4.0% and her 10 year risk is 2.2%. According to the ACR, ACS, and NCCN guidelines, an annual breast MRI exam along with mammogram is recommended if the patient's lifetime risk is 20% or greater. This exam was interpreted at Station ID: [id number]. NOTE: For mammograms, a report in lay terms will be sent to the patient. Approximately 15% of breast malignancies will not be visualized mammographically. In the management of a palpable breast mass, a negative mammogram must not discourage biopsy of a clinically suspicious lesion. Electronically Signed By: Tiffany Trinidad M.D., Ph.D. eb/:06/01/2024 10:38:55 letter sent: Additional Imaging Needed ACR BI-RADS Category 0: Incomplete: Need Additional Imaging Evaluation
--- NOTE | 2024-06-01 09:25 | DI.US.S_ITS ---
LIMITED ULTRASOUND OF LEFT BREAST: 06/01/2024 CLINICAL: Patient returns today to evaluate a focal asymmetry in the left breast. Comparison is made to exams dated: 06/01/2024 mammogram, 05/10/2024 mammogram, 01/01/2023 mammogram, 12/31/2021 mammogram, 12/24/2020 mammogram, and 01/11/2020 mammogram - . Color flow and real-time ultrasound of the left breast were performed. There is a benign 0.6 cm simple cyst in the left breast at 6 o'clock, 6 cm from the nipple. This correlates with mammography findings. IMPRESSION: BENIGN Left breast 0.6 cm simple cyst at 6 o'clock is benign. No mammographic or sonographic evidence of malignancy. A 1 year screening mammogram is recommended. Findings and recommendations were conveyed to the patient during today's evaluation. This exam was interpreted at Station ID: [id number]. Electronically Signed By: Tiffany Trinidad M.D., Ph.D. eb/:06/01/2024 17:47:10 letter sent: Normal Exam ACR BI-RADS Category 2: Benign
== END ==
PROVIDERS: PCP Family Medicine; Referring Provider Family Medicine; Visit Provider Family Medicine
DX: R92.8 Other abnormal and inconclusive findings on diagnostic imaging of breast (principal); N60.02 Solitary cyst of left breast
CPT/HCPCS: 76642; 77065; G0279

== ENCOUNTER → 2025-06-27 16:10 | Outpatient (CLI) | payer OTHER, SELFPAY ==
--- NOTE | 2025-06-27 16:12 | DI.MG.S_ITS ---
MM screening mammo BI: 06/27/2025. BI-RADS: 1 CLINICAL: 70-year old female for bilateral screening mammogram. Tyrer-Cuzick lifetime risk of 3.1%. No personal or first-degree family history of breast cancer. The patient had a prior left breast biopsy. PRIOR EXAMS 06/01/2024, 05/10/2024, 01/01/2023, 12/31/2021, MAMMOGRAPHY TECHNIQUE: 2D and 3D (tomosynthesis) digital mammographic views obtained, with additional images as needed for full coverage. Current study was also evaluated with a Computer Aided Detection (CAD) system. DENSITY B. There are scattered areas of fibroglandular density. MAMMOGRAPHY FINDINGS Bilateral: No suspicious mass, asymmetry, microcalcification, or other abnormality seen. IMPRESSION: * No evidence of malignancy. RECOMMENDATIONS Bilateral * Annual screening mammography. OVERALL ASSESSMENT CATEGORY BI-RADS-1: Negative. The [employer] recommends annual screening mammography beginning at age 40 for women with average risk of breast cancer. ELECTRONICALLY SIGNED: Vishnu Neely M.D. on 06/28/2025 at 01:41:18 PM PT Interpreting Station ID: [id number]
== END ==
LOC: MAMMO 16:12
PROVIDERS: PCP Family Medicine; Referring Provider Family Medicine; Visit Provider Family Medicine
DX: Z12.31 Encounter for screening mammogram for malignant neoplasm of breast (principal)
CPT/HCPCS: 77063; 77067